=== PATIENT | female | born 1960 | race Caucasian/White ===

== ENCOUNTER 2016-12-13 18:12 | Emergency (ER) | payer OTHER ==
[~2016-12-13] VITALS: Ht 154.9 cm; Wt 47.7 kg
[2016-12-13 18:21] VITALS: TEMP 36.8; Ht 154.9 cm; Wt 47.7 kg
[2016-12-13] MEDS ORDERED: GLC/500 PO (19:00)
[2016-12-13] MEDS ORDERED: NVLG SQ (19:00)
[2016-12-13] MEDS ORDERED: INSDGI SC (19:00)
[2016-12-13] MEDS ORDERED: ATOR10TA82 PO (19:00)
[2016-12-13] MEDS ORDERED: PANT40TA PO (19:00)
[2016-12-13] MEDS ORDERED: GLC500 PO (19:00)
[2016-12-13] MEDS ORDERED: INSU0.01 SQ (19:02)
[2016-12-13 19:06] LABS: URINE APPEARANCE CLEAR (CLEAR); URINE BILIRUBIN NEG (NEG); URINE COLOR YELLOW; URINE NITRITE NEG (NEG); URINE SPECIFIC GRAVITY 1.012 (1.000-1.030); UROBILINOGEN NEG (NEG)
[2016-12-13] MEDS ORDERED: BREX1TAB2 PO (19:06)
[2016-12-13] MEDS ORDERED: VORT1TAB3 PO (19:06)
[2016-12-13] MEDS ORDERED: VENL75CA73 PO (19:06)
[2016-12-13] MEDS ORDERED: MIRT30TA PO (19:06)
[2016-12-13] MEDS ORDERED: BREX1TAB3 PO (19:06)
[2016-12-13] MEDS ORDERED: DIPH25CA65 PO (19:06)
[2016-12-13] MEDS ORDERED: LORA-741 PO (19:07)
[2016-12-13 19:10] LABS: MANUAL MICROSCOPIC REQUIRED? NO; REVIEW REQ? NO
[2016-12-13 19:20] LABS: COMPLETE YES; HEMATOCRIT 41.1 % (37-47); IG% 0.2 %; LYMPH % 20.1 %; LYMPH ABS # 1.68 K/uL (1.2-3.4); MEAN CELL VOLUME 91.1 fL (80-100); MEAN CORPUSCULAR HEMOGLOBIN 32.8 pg (25-34); MEAN PLATELET VOLUME 10.3 fL (7.4-10.4); MONO % 7.2 %; NEUT % 72.5 %; PLATELET COUNT 238 K/uL (130-400); RED BLOOD COUNT 4.51 M/uL (4.2-5.4); WHITE BLOOD COUNT 8.36 K/uL (4.8-10.8)
[2016-12-13 19:21] LABS: BENZODIAZEPINE, URINE NEG (NEG); COCAINE,URINE NEG (NEG); PHENCYCLIDINE, URINE NEG (NEG)
[2016-12-13 19:39] LABS: ALT/SGPT 31 U/L (12-78); AST/SGOT 21 U/L (15-37); BLOOD UREA NITROGEN 9 mg/dl (7-18); BUN/CREATININE RATIO 12.2 (10-20); CALCIUM 9.2 mg/dl (8.5-10.1); CARBON DIOXIDE 25 mmol/L (21-32); CHLORIDE 101 mmol/L (98-107); CREATININE 0.71 mg/dl (0.60-1.20); GLUCOSE 258 mg/dl (70-99); POTASSIUM 4.5 mmol/L (3.5-5.1); SODIUM 135 mmol/L (136-145)
[2016-12-13] MEDS ORDERED: INSULIN GLARGINE SOLOSTAR 100 UNITS/ML 3 ML PEN SC STA (19:44)
[2016-12-13] MEDS ORDERED: PHARMACY GLYCEMIC MGMT CONSULT STA (19:44)
[2016-12-13] MEDS ORDERED: GLUCOSE 40% GEL 15 GM TUBE PO PRN (19:45)
[2016-12-13] MEDS ORDERED: GLUCOSE 10 TABS/TUBE PO PRN (19:45)
[2016-12-13] MEDS ORDERED: GLUCAGON FOR INJ 1 MG VIAL SQ PRN (19:45)
[2016-12-13] MEDS ORDERED: DEXTROSE 50% 50 ML SYR IV PRN (19:45)
[2016-12-13 19:50] LABS: ALKALINE PHOSPHATASE 77 U/L (45-117)
[2016-12-13] MEDS ORDERED: INSULIN ASPART 100 UNITS/ML 3 ML PEN SC SCH ×2 (20:45)
[2016-12-13] MEDS ORDERED: INSULIN HUMAN REGULAR SC SCH (21:00)
[2016-12-13] MEDS ORDERED: PHARMACY GLYCEMIC MGMT CONSULT PRN (21:00)
--- NOTE | 2016-12-13 22:11 | EMERGENCY ROOM VISIT NOTE ---
History Report prepared by Claudy: Jr Oliveira Under the Supervision of: Dr. Zach Rider M.D. First contact with patient: 18:28 Chief Complaint: PSYCHIATRIC PROBLEMS Stated Complaint: DEPRESSION/ANXIETY History of Present Illness The patient is a 56 year old female who presents to the Emergency Room with complaints of worsening anxiety and depression beginning a few weeks ago. She states that she has had worsening feeling of hopelessness. She denies any suicidal or homicidal ideation. The patient describes her anxiety and depression as "severe". She notes that she has had problems with depression and anxiety for many years. She has been hospitalized multiple times for her depression. The patient states that she lost her youngest son to suicide four years ago. She states that her son also murdered the mother of his children, and now her and her are watching those children. The patient sees a therapist once a week, but is beginning to see them twice a week. Source of History: patient Onset: A few weeks ago Symptom Intensity: severe Quality: other (depression and anxiety) Timing: worsening Review of Systems See HPI for pertinent positives & negatives. A total of 10 systems reviewed and were otherwise negative. Past Medical & Surgical Medical Problems: (1) Anxiety (2) Depression Family History No pertinent family history stated. Social History Smoking Status: Current Every Day Smoker Housing Status: lives with family Current/Historical Medications Scheduled Atorvastatin (Lipitor), 10 MG PO QAM Brexpiprazole (Rexulti), 0.5 MG PO DIRECTED Brexpiprazole (Rexulti), 1 MG PO DIRECTED Diphenhydramine Hcl (Benadryl Allergy), 25 MG PO HS Insulin Aspart (Novolog), 1 DOSE SQ SLIDING SCALE Insulin Glargine (Lantus), 8 UNITS SC QAM Insulin Isophane (Human) (Novolin N Relion), 20 UNITS SQ HS Lorazepam (Ativan), 0.5 MG PO BID Metformin HCl (Metformin HCl), 500 MG PO QAM Metformin Hcl (Glucophage), 1,000 MG PO QPM Mirtazapine (Remeron), 30 MG PO HS Pantoprazole (Protonix), 40 MG PO QAM Venlafaxine Hcl (Venlafaxine Extended Rel), 225 MG PO QAM Vortioxetine HBr (Trintellix), 20 MG PO QAM Allergies Coded Allergies: Prednisone (Unverified Allergy, Unknown, HYPER, 12/13/16) Physical Exam Vital Signs Date Time Temp Pulse Resp B/P Pulse Ox O2 Delivery O2 Flow Rate FiO2 12/13/16 23:52 78 18 121/72 96 12/13/16 21:08 84 20 117/74 93 Room Air 12/13/16 19:30 97 20 132/81 93 Room Air 12/13/16 18:21 36.8 100 20 140/83 93 Room Air Physical Exam PSYCH: Denies suicidal or homicidal ideation. GENERAL: Patient is a healthy-appearing well-nourished HEAD: Normocephalic atraumatic EYES: Ocular movements intact pupils equal and react to light OROPHARYNX mucous membranes are moist no exudates present no erythema or edema present NECK: Supple no nuchal rigidity CHEST: Good equal expansion LUNGS: Clear and equal to auscultation CARDIAC: Normal S1 and S2 ABDOMEN: Soft nontender no guarding BACK: No CVA tenderness EXTREMITIES: No pain upon palpation normal muscle strength in all groups no clubbing cyanosis or edema NEURO: Patient is following commands is answering questions appropriately. Alert and oriented x3 Cranial Nerves 2-12 grossly intact Medical Decision & Procedures Laboratory Results 12/13/16 19:08 Red Blood Count 4.51, Mean Corpuscular Volume 91.1, Mean Corpuscular Hemoglobin 32.8, Mean Corpuscular Hemoglobin Concent 36.0, Mean Platelet Volume 10.3, Neutrophils (%) (Auto) 72.5, Lymphocytes (%) (Auto) 20.1, Monocytes (%) (Auto) 7.2, Eosinophils (%) (Auto) 0.0, Basophils (%) (Auto) 0.0, Neutrophils # (Auto) 6.06, Lymphocytes # (Auto) 1.68, Monocytes # (Auto) 0.60, Eosinophils # (Auto) 0.00, Basophils # (Auto) 0.00 12/13/16 19:08 Test 12/13/16 18:35 12/13/16 19:08 12/13/16 23:45 Urine Color YELLOW Urine Appearance CLEAR (CLEAR) Urine pH 5.0 (4.5-7.5) Urine Specific [place] 1.012 (1.000-1.030) Urine Protein NEG (NEG) Urine Glucose (UA) 1+ (NEG) Urine Ketones 1+ (NEG) Urine Occult Blood 1+ (NEG) Urine Nitrite NEG (NEG) Urine Bilirubin NEG (NEG) Urine Urobilinogen NEG (NEG) Urine Leukocyte Esterase NEG (NEG) Urine WBC (Auto) 1-5 /hpf (0-5) Urine RBC (Auto) 0-4 /hpf (0-4) Urine Hyaline Casts (Auto) 0 /lpf (0-5) Urine Epithelial Cells (Auto) 5-10 /lpf (0-5) Urine Bacteria (Auto) NEG (NEG) Urine Opiates Screen NEG (NEG) Urine Methadone, Qualitative NEG (NEG) Urine Barbiturates NEG (NEG) Urine Phencyclidine (PCP) Level NEG (NEG) Ur Amphetamine/Methamphetamine NEG (NEG) MDMA (Ecstasy) Screen NEG (NEG) Urine Benzodiazepines Screen NEG (NEG) Urine Cocaine Metabolite NEG (NEG) Urine Marijuana (THC) NEG (NEG) White Blood Count 8.36 K/uL (4.8-10.8) Red Blood Count 4.51 M/uL (4.2-5.4) Hemoglobin 14.8 g/dL (12.0-16.0) Hematocrit 41.1 % (37-47) Mean Corpuscular Volume 91.1 fL (80-100) Mean Corpuscular Hemoglobin 32.8 pg (25-34) Mean Corpuscular Hemoglobin Concent 36.0 g/dl (32-36) Platelet Count 238 K/uL (130-400) Mean Platelet Volume 10.3 fL (7.4-10.4) Neutrophils (%) (Auto) 72.5 % Lymphocytes (%) (Auto) 20.1 % Monocytes (%) (Auto) 7.2 % Eosinophils (%) (Auto) 0.0 % Basophils (%) (Auto) 0.0 % Neutrophils # (Auto) 6.06 K/uL (1.4-6.5) Lymphocytes # (Auto) 1.68 K/uL (1.2-3.4) Monocytes # (Auto) 0.60 K/uL (0.11-0.59) Eosinophils # (Auto) 0.00 K/uL (0-0.5) Basophils # (Auto) 0.00 K/uL (0-0.2) RDW Standard Deviation 44.1 fL (36.4-46.3) RDW Coefficient of Variation 13.2 % (11.5-14.5) Immature Granulocyte % (Auto) 0.2 % Immature Granulocyte # (Auto) 0.02 K/uL (0.00-0.02) Anion Gap 9.0 mmol/L (3-11) Est Creatinine Clear Calc Drug Dose 67.4 ml/min Estimated GFR () 111.1 Estimated GFR (Non- 95.9 BUN/Creatinine Ratio 12.2 (10-20) Calcium Level 9.2 mg/dl (8.5-10.1) Total Bilirubin 0.4 mg/dl (0.2-1) Direct Bilirubin < 0.1 mg/dl (0-0.2) Aspartate Amino Transf (AST/SGOT) 21 U/L (15-37) Alanine Aminotransferase (ALT/SGPT) 31 U/L (12-78) Alkaline Phosphatase 77 U/L (45-117) Total Protein 7.7 gm/dl (6.4-8.2) Albumin 4.2 gm/dl (3.4-5.0) Thyroid Stimulating Hormone (TSH) 1.840 uIu/ml (0.300-4.500) Ethyl Alcohol mg/dL < 3.0 mg/dl (0-3) Bedside Glucose 446 mg/dl (70-90) Labs reviewed by ED physician. Medications Administered Medications (Trade) Dose Ordered Sig/Andrew Route Start Time Stop Time Status Last Admin Dose Admin Insulin Aspart (novoLOG ASPART) SLIDING SCALE ACHS SC 12/13/16 20:45 12/14/16 00:20 DC 12/13/16 20:58 10 UNITS Insulin Human NPH (novoLIN-N NPH) 10 units ONE ONCE SC 12/13/16 22:15 12/13/16 22:16 DC 12/13/16 23:09 10 UNITS Nicotine (Nicoderm Cq 21MG Patch) 1 patch NOW STAT TD 12/13/16 22:55 12/13/16 22:56 DC 12/13/16 23:09 1 PATCH ED Course 1848: Past medical records reviewed. The patient was evaluated in room A6. A complete history and physical examination was performed. 1944: Ordered consult [facility]. 2099: The patient is medically clear. She will be evaluated by -[facility]. Ordered [facility]. 2254: Ordered Nicoderm Cq 21 mg Patch TD. 2300: Ordered Nicorette 2 mg gum MT. 2322: I spoke with the commercial sales representative from [address] [place] [address]. They feel that the patient would be safe for discharge with outpatient follow up. 2330: Upon reexamination the patient is resting comfortably. I discussed results and treatment plan with the patient. She verbalizes agreement and understanding. The patient is ready for discharge. Medical Decision Differential diagnosis: Etiologies such as mood disorder, infection, hypoglycemia, electrolyte abnormalities, cardiac sources, intracerebral event, toxicologic, neurologic, as well as others were entertained. This is a 56-year-old female who presents emergency department complaining of anxiety. The patient denies being suicidal or homicidal. The patient has made double times to get admitted however does not feel that she is suicidal or homicidal. Based on these findings I did discuss the case with the case management who agreed to see the patient. The patient was also evaluated by [facility]. and it was felt that the patient was well enough to be discharged home. The patient does have an elevation in her blood sugar. She was given 10 units of insulin while emergency department. I stressed the need for close follow-up with her diabetic doctor. Patient was in agreement with the treatment plan. Impression Primary Impression: Mood disorder Additional Impression: Hyperglycemia Scribe Attestation The scribe's documentation has been prepared under my direction and personally reviewed by me in its entirety. I confirm that the note above accurately reflects all work, treatment, procedures, and medical decision making performed by me. Departure Information Dispostion Home / Self-Care Referrals No Doctor, Assigned (PCP) Forms HOME CARE DOCUMENTATION FORM, IMPORTANT VISIT INFORMATION, WORK / SCHOOL INSTRUCTIONS Patient Instructions Hyperglycemia, Hypertension Control, My [facility] Additional Instructions You were found to have an elevated blood pressure today (>120 sytolic or >90 diastolic). Per medicare guidelines, you need to follow up with this blood pressure screening with your Primary Care Physician (PCP). For a new PCP call [phone]. You have been examined and treated today on an emergency basis only. This is not a substitute for, or an effort to provide, complete comprehensive medical care. It is impossible to recognize and treat all injuries or illnesses in a single emergency department visit. It is therefore important that you follow up closely with Dr Lazaro. Call as soon as possible for an appointment. Thank you for your time and consideration. I look forward to speaking with you again soon. Please don't hesitate to call us if you have any questions. Problem Qualifiers
[2016-12-13] MEDS ORDERED: INSULIN HUMAN NPH SC ONE (22:15)
[2016-12-13] MEDS ORDERED: NICOTINE 21 MG/24 HR TDSY TD STA (22:55)
[2016-12-13] MEDS ORDERED: NICOTINE POLACRILEX 2 MG GUM MT PRN (23:00)
[2016-12-13 23:52] VITALS: BP 121/72; PULSE 78; O2SAT 96
[2016-12-14] MEDS ORDERED: INSULIN ASPART 100 UNITS/ML 3 ML PEN SC SCH
== END 2016-12-13 23:53 | disposition home or self-care (01) ==
LOC: C.EDB 18:15 → C.EDA 23:53
DX: F39 Unspecified mood [affective] disorder (principal); E11.65 Type 2 diabetes mellitus with hyperglycemia; F41.9 Anxiety disorder, unspecified; F17.200 Nicotine dependence, unspecified, uncomplicated; Z79.4 Long term (current) use of insulin; Z79.84 Long term (current) use of oral hypoglycemic drugs

== ENCOUNTER 2016-12-14 17:15 | Emergency (ER) | payer OTHER ==
[~2016-12-14] VITALS: Ht 154.9 cm; Wt 47.7 kg
[~2016-12-14 17:15] MED LIST: ATOR10TA82 PO; BREX1TAB2 PO; BREX1TAB3 PO; DIPH25CA65 PO; GLC/500 PO; GLC500 PO; INSDGI SC; INSU0.01 SQ; LORA-741 PO; MIRT30TA PO; NVLG SQ; PANT40TA PO; VENL75CA73 PO; VORT1TAB3 PO
[2016-12-14 17:20] VITALS: TEMP 36.8; Ht 154.9 cm; Wt 47.7 kg
[2016-12-14 17:54] LABS: URINE APPEARANCE CLEAR (CLEAR); URINE BILIRUBIN NEG (NEG); URINE COLOR YELLOW; URINE NITRITE NEG (NEG); URINE SPECIFIC GRAVITY 1.007 (1.000-1.030); UROBILINOGEN NEG (NEG)
[2016-12-14 17:55] LABS: MANUAL MICROSCOPIC REQUIRED? YES; REVIEW REQ? NO
[2016-12-14 18:06] LABS: URINE BACTERIA NEG (NEG); URINE RBC 0-4 /hpf (0-4)
[2016-12-14 18:35] LABS: BENZODIAZEPINE, URINE NEG (NEG); COCAINE,URINE NEG (NEG); PHENCYCLIDINE, URINE NEG (NEG)
[2016-12-14] MEDS ORDERED: ATIVAN 1MG HOMEPACK PO ONE (20:45)
[2016-12-14 21:10] VITALS: BP 129/84; PULSE 94; O2SAT 98
--- NOTE | 2016-12-14 23:28 | EMERGENCY ROOM VISIT NOTE ---
History Report prepared by Claudy: Indiana Ramos Under the Supervision of: Dr. Tahir Cuevas D.O. First contact with patient: 17:28 Chief Complaint: MENTAL HEALTH EVALUATION Stated Complaint: DEPRESSION,ANXIETY,TEARFULNESS,TIRED History of Present Illness The patient is a 56 year old female who presents to the Emergency Room with complaints of an episode of severe depression starting a week ago. The patient states that she has a history of severe depression and anxiety. She states that she came to the ED yesterday, but didn't meet criteria to be admitted. She reports that she has been institutionalized before, the most recent being last summer at [facility]. She reports that her therapist and psychiatrist suggest she be inpatient till her depression and anxiety are under control. The patient states she last saw her therapist last week as a routine appointment. She states that much of her depression is from stress raising her three grandchildren. She reports that in 2012 her son committed suicide after shooting his . She states that she has had ideas of hurting herself, but denies a plan. She denies hearing voices, using alcohol, and using drugs. She notes that she had a medication change recently. Source of History: patient Onset: week ago Position: other (global) Quality: other (global) Timing: other (episode) Note: The patient complains of ideas of hurting herself. The patient denies a plan to hurt herself and voices. Review of Systems See HPI for pertinent positives & negatives. A total of 10 systems reviewed and were otherwise negative. Past Medical & Surgical Medical Problems: (1) Anxiety (2) Depression (3) Diabetes Family History No pertinent family history Social History Smoking Status: Current Every Day Smoker Alcohol Use: none Drug Use: none Marital Status: Housing Status: lives with family Current/Historical Medications Scheduled Atorvastatin (Lipitor), 10 MG PO QAM Brexpiprazole (Rexulti), 0.5 MG PO DIRECTED Brexpiprazole (Rexulti), 1 MG PO DIRECTED Diphenhydramine Hcl (Benadryl Allergy), 25 MG PO HS Insulin Aspart (Novolog), 1 DOSE SQ SLIDING SCALE Insulin Glargine (Lantus), 8 UNITS SC QAM Insulin Isophane (Human) (Novolin N Relion), 20 UNITS SQ HS Lorazepam (Ativan), 0.5 MG PO BID Metformin HCl (Metformin HCl), 500 MG PO QAM Metformin Hcl (Glucophage), 1,000 MG PO QPM Mirtazapine (Remeron), 30 MG PO HS Pantoprazole (Protonix), 40 MG PO QAM Venlafaxine Hcl (Venlafaxine Extended Rel), 225 MG PO QAM Vortioxetine HBr (Trintellix), 20 MG PO QAM Allergies Coded Allergies: Prednisone (Unverified Allergy, Unknown, HYPER, 12/14/16) Physical Exam Vital Signs Date Time Temp Pulse Resp B/P Pulse Ox O2 Delivery O2 Flow Rate FiO2 12/14/16 21:10 94 20 129/84 98 Room Air 12/14/16 17:20 36.8 108 18 154/84 94 Room Air Physical Exam GENERAL: Patient is awake, alert, and in no acute distress. Patient is resting comfortably and anxious in appearance. She doesn't appear to be in pain. EYES: The conjunctivae are clear. The pupils are round and reactive. EARS, NOSE, MOUTH AND THROAT: The nose is without any evidence of any deformity. Mucous membranes are moist tongue is midline NECK: The neck is nontender and supple. RESPIRATORY: Normal respiratory effort is noted there is no evidence of wheezing rhonchi or rales CARDIOVASCULAR: Regular rate and rhythm noted there no murmurs rubs or gallops normal S1 normal S2 GASTROINTESTINAL: The abdomen is soft. Bowel sounds are present in all quadrants. Abdomen is nontender MUSCULOSKELETAL/EXTREMITIES: There is no evidence of gross deformity full range of motion is noted in the hips and shoulders SKIN: There is no obvious evidence of any rash. There are no petechiae, pallor or cyanosis noted. NEUROLOGIC: Patient is awake alert and oriented x3 strength is symmetric patellar reflexes are 2+ bilaterally PSYCH: Affect is flat. Patient makes poor eye contact at times. Patient admits to suicidal ideation but no plan. Medical Decision & Procedures Laboratory Results Test 12/14/16 00:00 12/14/16 19:32 Urine Color YELLOW Urine Appearance CLEAR (CLEAR) Urine pH 6.0 (4.5-7.5) Urine Specific [place] 1.007 (1.000-1.030) Urine Protein NEG (NEG) Urine Glucose (UA) NEG (NEG) Urine Ketones TRACE (NEG) Urine Occult Blood TRACE (NEG) Urine Nitrite NEG (NEG) Urine Bilirubin NEG (NEG) Urine Urobilinogen NEG (NEG) Urine Leukocyte Esterase NEG (NEG) Urine WBC (Auto) /hpf (0-5) Urine RBC (Auto) /hpf (0-4) Urine Hyaline Casts (Auto) /lpf (0-5) Urine Epithelial Cells (Auto) /lpf (0-5) Urine Bacteria (Auto) (NEG) Urine RBC 0-4 /hpf (0-4) Urine WBC 1-5 /hpf (0-5) Urine Epithelial Cells 10-20 /lpf (0-5) Urine Bacteria NEG (NEG) Urine Opiates Screen NEG (NEG) Urine Methadone, Qualitative NEG (NEG) Urine Barbiturates NEG (NEG) Urine Phencyclidine (PCP) Level NEG (NEG) Ur Amphetamine/Methamphetamine NEG (NEG) MDMA (Ecstasy) Screen NEG (NEG) Urine Benzodiazepines Screen NEG (NEG) Urine Cocaine Metabolite NEG (NEG) Urine Marijuana (THC) NEG (NEG) Bedside Glucose 235 mg/dl (70-90) Laboratory results per my review. Medications Administered Medications (Trade) Dose Ordered Sig/Andrew Route Start Time Stop Time Status Last Admin Dose Admin Lorazepam (Ativan 1MG Home Pack) 1 homepack UD ONCE PO 12/14/16 20:45 12/14/16 20:46 DC 12/14/16 21:12 1 HOMEPACK ED Course 1727: The patient was evaluated in room A6. A complete history and physical examination were performed. 2044: Ordered Lorazepam 1 homepack PO. 2111: Upon reevaluation, the patient is resting comfortably. I discussed the results and treatment plan with her. The patient verbalized agreement of the treatment plan. She was discharged home. Medical Decision Differential diagnosis: Etiologies such as mood disorder, infection, hypoglycemia, electrolyte abnormalities, cardiac sources, intracerebral event, toxicologic, neurologic, as well as others were entertained. Nursing notes reviewed. Patient's previous electronic medical records reviewed. The patient is a 56-year-old female who presented to the emergency department for evaluation of depression and anxiety. The patient has many stressors. She was cleared medically yesterday and at this time I do not see any new indication to repeat laboratory studies. She was evaluated by the mental health top case assembler in the emergency Department as well as the delegate from [address] [place] [address]. The delegate from [address] [place] [address] discussed her case with the on-call psychiatrist and at this time she does not meet criteria for inpatient management. The patient was encouraged to continue all medications as prescribed and follow-up with her primary care physician as well as her primary therapist as soon as possible. She was also encouraged to call crisis or return to the emergency department immediately if symptoms change worsen or the need arises. Impression Primary Impression: Anxiety Additional Impression: Depression Scribe Attestation The scribe's documentation has been prepared under my direction and personally reviewed by me in its entirety. I confirm that the note above accurately reflects all work, treatment, procedures, and medical decision making performed by me. Departure Information Dispostion Home / Self-Care Referrals Hina Lazaro M.D. (PCP) Forms HOME CARE DOCUMENTATION FORM, IMPORTANT VISIT INFORMATION Patient Instructions My [facility] Additional Instructions Continue all medications as prescribed. Rest and avoid any strenuous activity. Follow-up with your therapist as scheduled. Call crisis or return to the emergency Department immediately if symptoms change worsen or the need arises. Problem Qualifiers Additional Impression: Depression Depression Type: unspecified Qualified Codes: F32.9 - Major depressive disorder, single episode, unspecified
== END 2016-12-14 21:12 | disposition home or self-care (01) ==
LOC: C.EDB 17:16 → C.EDA 21:12
DX: F41.9 Anxiety disorder, unspecified (principal); F32.9 Major depressive disorder, single episode, unspecified; E11.9 Type 2 diabetes mellitus without complications; F17.200 Nicotine dependence, unspecified, uncomplicated; Z79.4 Long term (current) use of insulin; Z79.84 Long term (current) use of oral hypoglycemic drugs

== ENCOUNTER 2016-12-15 17:43 | Inpatient (IN) | payer OTHER ==
[~2016-12-15] VITALS: Ht 154.9 cm; Wt 46.9 kg
--- NOTE | 2016-12-15 18:09 | EMERGENCY ROOM VISIT NOTE ---
History Report prepared by Claudy: Davy Silvestre Under the Supervision of: Dr. Tahir Cuevas D.O. First contact with patient: 17:47 Chief Complaint: MENTAL HEALTH EVALUATION Stated Complaint: SEVERE DEPRESSION AND ANXIETY History of Present Illness The patient is a 56 year old female who presents to the Emergency Room for the third time in the past three days due to severe depression and anxiety that she has been dealing with for the past week. The patient is currently under a significant amount of stress due to raising her three grandchildren after her son killed himself and his just over four years ago. She has a history of anxiety and depression and sees a therapist routinely. She was treated as an inpatient for psychiatric concerns at [place] last summer, almost one year ago. On the previous two visits it was stated by [facility] that the patient did no meet criteria for inpatient treatment. Today the patient notes that her depression continues to worsen. She still denies any specific suicidal plans, but notes that sometimes she "thinks that her family might be better off without her." The hospital Psychologist Clinical called the patient earlier today, and she stated that she was not doing well. She was then advised to come back to the Emergency Department. 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 A total of 10 systems reviewed and were otherwise negative. Past Medical & Surgical Medical Problems: (1) Anxiety (2) Depression (3) Diabetes Family History No pertinent family history Social History Smoking Status: Current Every Day Smoker Alcohol Use: none Drug Use: none Marital Status: Housing Status: lives with family Current/Historical Medications Scheduled Atorvastatin (Lipitor), 10 MG PO QAM Brexpiprazole (Rexulti), 0.5 MG PO DIRECTED Brexpiprazole (Rexulti), 1 MG PO DIRECTED Insulin Aspart (Novolog), 1 DOSE SQ SLIDING SCALE Insulin Glargine (Lantus), 8 UNITS SC QAM Insulin Isophane (Human) (Novolin N Relion), 20 UNITS SQ HS Lorazepam (Ativan), 0.5 MG PO BID Metformin HCl (Metformin HCl), 500 MG PO QAM Metformin Hcl (Glucophage), 1,000 MG PO QPM Mirtazapine (Remeron), 30 MG PO HS Pantoprazole (Protonix), 40 MG PO QAM Venlafaxine Hcl (Venlafaxine Extended Rel), 225 MG PO QAM Vortioxetine HBr (Trintellix), 20 MG PO QAM Scheduled PRN Diphenhydramine Hcl (Benadryl Allergy), 25 MG PO HS PRN for Insomnia Allergies Coded Allergies: Prednisone (Unverified Adverse Reaction, Unknown, HYPER, 12/15/16) Physical Exam Vital Signs Date Time Temp Pulse Resp B/P Pulse Ox O2 Delivery O2 Flow Rate FiO2 12/15/16 17:47 36.8 92 22 162/103 95 Room Air Physical Exam GENERAL: Patient is awake, alert, and very anxious appearing. EYES: The conjunctivae are clear. The pupils are round and reactive. EARS, NOSE, MOUTH AND THROAT: The nose is without any evidence of any deformity. Mucous membranes are moist tongue is midline NECK: The neck is nontender and supple. RESPIRATORY: Normal respiratory effort is noted there is no evidence of wheezing rhonchi or rales CARDIOVASCULAR: Regular rate and rhythm noted there no murmurs rubs or gallops normal S1 normal S2 GASTROINTESTINAL: The abdomen is soft. Bowel sounds are present in all quadrants. Abdomen is nontender MUSCULOSKELETAL/EXTREMITIES: There is no evidence of gross deformity full range of motion is noted in the hips and shoulders SKIN: There is no obvious evidence of any rash. There are no petechiae, pallor or cyanosis noted. NEUROLOGIC: Patient is awake alert and oriented x3 strength is symmetric patellar reflexes are 2+ bilaterally PSYCH: The patient's affect was very flat. She was very anxious appearing. Makes poor eye contact. Vague suicidal ideation without any specific plan. Medical Decision & Procedures Laboratory Results Test 12/15/16 18:05 Urine Color DK YELLOW Urine Appearance CLEAR (CLEAR) Urine pH 5.5 (4.5-7.5) Urine Specific [place] 1.027 (1.000-1.030) Urine Protein NEG (NEG) Urine Glucose (UA) NEG (NEG) Urine Ketones 2+ (NEG) Urine Occult Blood TRACE (NEG) Urine Nitrite NEG (NEG) Urine Bilirubin NEG (NEG) Urine Urobilinogen NEG (NEG) Urine Leukocyte Esterase NEG (NEG) Urine WBC (Auto) 1-5 /hpf (0-5) Urine RBC (Auto) 5-10 /hpf (0-4) Urine Hyaline Casts (Auto) 1-5 /lpf (0-5) Urine Epithelial Cells (Auto) >30 /lpf (0-5) Urine Bacteria (Auto) 1+ (NEG) Urine Opiates Screen NEG (NEG) Urine Methadone, Qualitative NEG (NEG) Urine Barbiturates NEG (NEG) Urine Phencyclidine (PCP) Level NEG (NEG) Ur Amphetamine/Methamphetamine NEG (NEG) MDMA (Ecstasy) Screen NEG (NEG) Urine Benzodiazepines Screen NEG (NEG) Urine Cocaine Metabolite NEG (NEG) Urine Marijuana (THC) NEG (NEG) Laboratory results per my review. ED Course 1755: The patient was evaluated in room A6. A complete history and physical examination were performed. 1900: I discussed the case with the [address] [place] [address] Delegate at this time, the patient will be accepted to [address] [place] [address] for psychiatric inpatient treatment. Medical Decision Medication Reconciliation: I attest that I have personally reviewed the patient' s current medications list. Blood pressure screening: Patient was found to have an elevated blood pressure and was referred to their primary doctor for recheck and further treatment. Differential diagnosis: Etiologies such as mood disorder, infection, hypoglycemia, electrolyte abnormalities, cardiac sources, intracerebral event, toxicologic, neurologic, as well as others were entertained. The patient is a 56-year-old female who presented to emergency department for evaluation of depression and suicidal ideation. The patient has been having ongoing symptoms for quite some time but these appear to be worsened especially over the last week. This is the third visit to our emergency department for the symptoms. On previous visits the patient was not admitted for inpatient psychiatric care because she did not meet specific criteria but today her symptoms appear much worse. She doesn't a history of diabetes. She was medically cleared recently so I do not feel repeat laboratory studies would be warranted. I discussed the patient's case with the emergency department mental trimming caser. She was evaluated by [address] [place] [address] and felt to be a good candidate for inpatient treatment. Consults Time Called: 1800 Consulting Physician: [address] [place] [address] Delegate Returned Call: 1900 I discussed the case with the [address] [place] [address] Delegate at this time, the patient will be accepted to [address] [place] [address] for psychiatric inpatient treatment. Impression Primary Impression: Depression Additional Impressions: Anxiety Suicidal ideation Scribe Attestation The scribe's documentation has been prepared under my direction and personally reviewed by me in its entirety. I confirm that the note above accurately reflects all work, treatment, procedures, and medical decision making performed by me. Departure Information Dispostion Mental [facility] Acute Care (-[facility]) Referrals Hina Lazaro M.D. (PCP) Patient Instructions My [facility] Problem Qualifiers Primary Impression: Depression Depression Type: unspecified Qualified Codes: F32.9 - Major depressive disorder, single episode, unspecified
[2016-12-15 18:18] LABS: URINE APPEARANCE CLEAR (CLEAR); URINE BILIRUBIN NEG (NEG); URINE COLOR DK YELLOW; URINE EPITHELIAL CELL AUTO >30 /lpf (0-5); URINE NITRITE NEG (NEG); URINE PH 5.5 (4.5-7.5); URINE SPECIFIC GRAVITY 1.027 (1.000-1.030); UROBILINOGEN NEG (NEG)
[2016-12-15 18:22] LABS: MANUAL MICROSCOPIC REQUIRED? NO; REVIEW REQ? YES
[2016-12-15 18:42] LABS: BENZODIAZEPINE, URINE NEG (NEG); COCAINE,URINE NEG (NEG); PHENCYCLIDINE, URINE NEG (NEG)
[2016-12-15] MEDS ORDERED: NON-FORMULARY MEDICATION SCH ×3 (19:15)
[2016-12-15] MEDS ORDERED: BISMUTH SUBSALICYLATE PER ML OMNICELL CHARGE PO PRN (19:30)
[2016-12-15] MEDS ORDERED: ACETAMINOPHEN 325 MG TAB PO PRN (19:30)
[2016-12-15] MEDS ORDERED: NICOTINE POLACRILEX 2 MG GUM MT PRN (19:30)
[2016-12-15] MEDS ORDERED: ALUMINUM/MAGNESIUM SUSP 30 ML UDC PO PRN (19:30)
[2016-12-15] MEDS ORDERED: SODIUM CHLORIDE 0.65% NA SOLN 45 ML (OCEAN) PRN (19:30)
[2016-12-15] MEDS ORDERED: MAGNESIUM HYDROXIDE SUSP 30 ML UDC PO PRN (19:30)
[2016-12-15] MEDS ORDERED: hydrOXYzine HCL 25 MG TAB PO PRN ×2 (19:30)
[2016-12-15 19:48] VITALS: BP 132/78; PULSE 69; TEMP 36.8; BMI 19.5
[2016-12-15 20:12] VITALS: O2SAT 95
[2016-12-15] MEDS ORDERED: NURSING VERBAL MED ORDER ONE (20:30)
[2016-12-15] MEDS ORDERED: PHARMACY GLYCEMIC MGMT CONSULT PRN (20:45)
[2016-12-15] MEDS ORDERED: METFORMIN HCL 500 MG TAB PO SCH (21:00)
[2016-12-15] MEDS ORDERED: INSULIN ASPART 100 UNITS/ML 3 ML PEN SQ SCH (21:00)
[2016-12-15] MEDS ORDERED: INSULIN HUMAN NPH SQ SCH (21:30)
--- NOTE | 2016-12-15 21:41 | Pharmacy Progress Note ---
Glycemic: Assessment & Plan Date of Service December 15, 2016. Assessment & Plan Item Value Date Time Bedside Glucose 277 mg/dl H 12/15/16 1819 Reported Home Diabetes Regimen: * Lantus 8 units sub-q qam (pt has confirmed she has not missed any of these doses 12/13, 12/14, 12/15) * NPH 20 units sub-q qPM (pt may have received only 10 units when in ED Fri evening, 12/13) * Novolog per SSI. Average dose with B / L / D approximately 8 units / 4 units / 7 units SLIDING SCALE: 20-59= QAM(6 units) L(2 units) QPM(5 units) HS(0 units) 60-99= QAM(7) L(3) QPM(6) HS(0) 100-139= QAM(8) L(4) QPM(7) HS(0) 140-179= QAM(8) L(4) QPM(7) HS(0) 180-219= QAM(9) L(5) QPM(8) HS(1) 220-259= QAM(10) L(6) QPM(9) HS(2) 260-299= QAM(11) L(7) QPM(10) HS(3) 300-339= QAM(12) L(8) QPM(11) HS(4) 340-379= QAM(13) L(9) QPM(12) HS(5) 380-419= QAM(14) L(10) QPM(13) HS(6) 420-459= QAM(15) L(11) QPM(14) HS(7) 460-499= QAM(16) L(12) QPM(15) HS(8) 500-539= QAM(17) L(13) QPM(16) HS(9) * metformin 500mg po qam, 1000mg po qpm PLAN: Patient is a type-1 diabetic. Will basically continue her home insulin regimen (will reduce NPH 25% tonite) and reassess possible use of "home" metformin 12/16. 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 Incorporating a recheck of BSG @ 0200 and will monitor closely moving forward. In-patient Regimen: * Basal insulin: Lantus 8 units every QAM, NPH 15 units sub-q tonite * Correctional Insulin: Novolog Correction per scale ACHS & 0200 Goal Range: Low 100 mg/dL - High 140 mg/dL Correction Factor: 40 mg/dL/unit ACHS, will use correction factor = 50mg/dL/unit with 0200 check (NPH will be "peaking") * Prandial insulin: Per carb ratio of 1 unit per 15 grams CHO consumed, no carb ratio with 0200 check (NPH will be "peaking") Pharmacy will continue to monitor patient daily and write orders per [facility] inpatient glycemic control protocol. Thanks. * Please note that the plan above was derived based on current level of insulin resistance and hospital stress. These recommendations are appropriate for inpatient admission only. Plan of care upon discharge will need to be reassessed to avoid potential outpatient hypo/hyperglycemia.
[2016-12-15] MEDS: MIRTAZAPINE TAB 15 MG TAB PO SCH (21:55)
[2016-12-15] MEDS: LORAZEPAM 0.5 MG TAB PO SCH (21:56)
[2016-12-16] MEDS ORDERED: INSULIN ASPART 100 UNITS/ML 3 ML PEN SQ SCH ×2 (02:00)
[2016-12-16 07:03] VITALS: BP_SYST 115; BP_SYST 122; BP_SYST 145; BP_DIAS 77; BP_DIAS 78; BP_DIAS 89; PULSE 64; PULSE 79; TEMP 36.3
[2016-12-16] MEDS ORDERED: BREXPIPRAZOLE 1 MG PO SCH (09:00)
[2016-12-16] MEDS ORDERED: METFORMIN HCL 500 MG TAB PO SCH (09:00)
[2016-12-16] MEDS ORDERED: VENLAFAXINE HCL XR 75 MG CAPXR PO SCH (09:00)
[2016-12-16] MEDS: NICOTINE 21 MG/24 HR TDSY TD SCH (09:25)
[2016-12-16] MEDS: INSULIN GLARGINE SOLOSTAR 100 UNITS/ML 3 ML PEN SC SCH (09:26)
[2016-12-16] MEDS: ATORVASTATIN 10 MG TAB PO SCH (09:27)
[2016-12-16] MEDS: VORTIOXETINE HBR 20 MG PO SCH (09:27)
[2016-12-16] MEDS: LORAZEPAM 0.5 MG TAB PO SCH ×2 (09:27→21:17)
[2016-12-16] MEDS: PANTOprazole SOD 40 MG TAB PO SCH (09:27)
[2016-12-16] MEDS: INSULIN ASPART 100 UNITS/ML 3 ML PEN SQ SCH ×4 (09:39→21:14)
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
--- NOTE | 2016-12-16 13:34 | Pharmacy Progress Note ---
Glycemic Control: Progress Nt Date of Service December 16, 2016. Scope Glycemic Pharmacist consulted by Dr Meléndez on 12/15/16 for glycemic control and to write orders per [facility] inpatient glycemic control protocol. Objective Accuchecks BSG (last 24hrs): Test 12/15/16 18:19 12/16/16 01:55 12/16/16 08:17 12/16/16 08:36 Bedside Glucose 277 mg/dl (70-90) 298 mg/dl (70-90) 60 mg/dl (70-90) 114 mg/dl (70-90) Test 12/16/16 11:45 Bedside Glucose 254 mg/dl (70-90) Recent Pertinent Medications Outpatient Anti-diabetic Regimen: * Lantus 8 units sub-q qam (pt has confirmed she has not missed any of these doses 12/13, 12/14, 12/15) * NPH 20 units sub-q qPM (pt may have received only 10 units when in ED Fri evening, 12/13) * Novolog per SSI. Average dose with B / L / D approximately 8 units / 4 units / 7 units SLIDING SCALE: 20-59= QAM(6 units) L(2 units) QPM(5 units) HS(0 units) 60-99= QAM(7) L(3) QPM(6) HS(0) 100-139= QAM(8) L(4) QPM(7) HS(0) 140-179= QAM(8) L(4) QPM(7) HS(0) 180-219= QAM(9) L(5) QPM(8) HS(1) 220-259= QAM(10) L(6) QPM(9) HS(2) 260-299= QAM(11) L(7) QPM(10) HS(3) 300-339= QAM(12) L(8) QPM(11) HS(4) 340-379= QAM(13) L(9) QPM(12) HS(5) 380-419= QAM(14) L(10) QPM(13) HS(6) 420-459= QAM(15) L(11) QPM(14) HS(7) 460-499= QAM(16) L(12) QPM(15) HS(8) 500-539= QAM(17) L(13) QPM(16) HS(9) * metformin 500mg po qam, 1000mg po qpm Assessment & Plan ASSESSMENT: * 56yo type one diabetic with unknown degree of outpatient control. Will order A1c per protocol * Pt admitted last evening - outpatient regimen continued on admission with the exception of: * Metformin held * Decreased dose of NPH given last evening therefore additional BSG check + NovoLog given at 0200 for hyperglycemia * Pt with HYPOglycemia this morning, AM fasting BSG = 60mg/dl. Low was treated with juice per protocol, resolution of hypo with BSG = 114mg/dl and then patient was given breakfast * Hypo most likely secondary to large doses of NovoLog given at bedtime and 0200 for hyperglycemia * Will adjust regimen accordingly to prevent further hypo PLAN FOR INPATIENT GLYCEMIC CONTROL: * Holding outpatient oral diabetes medications * May consider resuming as patient does not have any medical contraindications to metformin at this time. Will re-consider 12/17 since pt with hypo 12/16. * Basal insulin * Lantus 8 units SQ daily in AM {this is outpatient dosing} * NPH 17 units SQ HS {this is reduced outpatient dosing to help prevent AM low } * Bolus insulin * NovoLog per scale ACHS or Q6hrs while NPO * Goal Range: Low 100 mg/dL - High 140 mg/dL * Correction Factor: 40 mg/dL/unit * Nutritional / Prandial insulin per carb ratio of 1 unit per 13 grams CHO consumed * Please note that the plan above was derived based on current level of insulin resistance and hospital stress. These recommendations are appropriate for inpatient admission only. Plan of care upon discharge will need to be reassessed to avoid potential outpatient hypo/hyperglycemia. Thank you.
[2016-12-16] MEDS: MIRTAZAPINE TAB 15 MG TAB PO SCH (21:18)
[2016-12-16] MEDS: QUETIAPINE FUMARATE 25 MG TAB PO SCH (21:18)
[2016-12-16] MEDS ORDERED: INSULIN HUMAN NPH SQ SCH ×2 (22:00)
[2016-12-17 07:06] VITALS: BP_SYST 121; BP_SYST 99; BP_DIAS 65; BP_DIAS 84; PULSE 80; TEMP 36.6
[2016-12-17] MEDS: VENLAFAXINE HCL XR 75 MG CAPXR PO SCH (09:27)
[2016-12-17] MEDS: LORAZEPAM 0.5 MG TAB PO SCH ×2 (09:27→21:51)
[2016-12-17] MEDS: VORTIOXETINE HBR 20 MG PO SCH (09:28)
[2016-12-17] MEDS: PANTOprazole SOD 40 MG TAB PO SCH (09:28)
[2016-12-17] MEDS: NICOTINE 21 MG/24 HR TDSY TD SCH (09:28)
[2016-12-17] MEDS: ATORVASTATIN 10 MG TAB PO SCH (09:28)
[2016-12-17] MEDS: INSULIN GLARGINE SOLOSTAR 100 UNITS/ML 3 ML PEN SC SCH (09:30)
[2016-12-17] MEDS: INSULIN ASPART 100 UNITS/ML 3 ML PEN SQ SCH ×3 (09:34→17:15)
[2016-12-17] MEDS: METFORMIN HCL 500 MG TAB PO SCH ×2 (09:35→18:06)
--- NOTE | 2016-12-17 13:10 | Psychiatric Progress Notes ---
Progress Note Date of Service December 17, 2016. Interval History 56 yo female admitted voluntarily on 12/16 with severe depression, anxiety and suicidality. She has had chronic struggles with depression and anxiety, worsened after her son murdered his and then suicided, leaving she and her to raise their 3 children. Chief Complaint "I haven't had any anxiety.". Subjective Patient was seen & assessed interval progress reviewed with Treatment Team. The patient says that she slept well, and so far today has had no anxiety. She is talking in groups, and finding comfort being with other people. She can't identify why her anxiety was so high at home, saying that she would get the children off to school, but then would want to get in the car and "get as far away from that house as I could". She is unable to say what it is about her house that triggers anxiety. Her did not come to visit last night. She has talked with staff about her support system, and wanting to reach out to friends when she is feeling anxious, but is hesitant, as she lost a friend in the past due to her depression. She denies SI today, and reports good sleep and appetite. Denies side effects to meds. Review of Systems Constitutional: No chills, No fatigue, No fever, No problem reported, No sweats , No weakness, No weight loss ENT: No dental problems, No hearing loss, No nasal symptoms, No problem reported, No sore throat, No tinnitus, No trouble swallowing, No unusual epistaxis Respiratory: No cough, No dyspnea at rest, No dyspnea on exertion, No hemoptysis, No problem reported, No shortness of breath, No sputum, No wheezing Cardiovascular: No PND, No chest pain, No claudication, No edema, No orthopnea , No palpitations, No problem reported Abdomen: No GI bleeding, No constipation, No diarrhea, No nausea, No pain, No problem reported, No vomiting Musculoskeletal: No calf pain, No joint pain, No muscle pain, No problem reported, No swelling Neurologic: No balance problems, No memory loss, No numbness/tingling, No paralysis, No problem reported, No vertigo, No weakness Psychiatric: + anxiety, + depression symptoms Integumentary: No bleeding, No color change, No itch, No new/changing skin lesions, No problem reported, No rash Sleep Information Total Hours of Sleep: 9.75 Meal Information Percent of Breakfast Consumed: 100 Percent of Lunch Consumed: 100 Percent of Dinner Consumed: 100 Mental Status Exam During interview pt is: alert and oriented, cooperative Appearance: appropriately dressed, appropriately groomed Eye contact is: good Motor behavior is: steady gait & station, no abnormal motor movements Speech: normal in rate, rhythm & volume Affect: blunted Mood is: depressed Thought process: linear, logical Thought content: reality based without delusions Suicidal thought are: denied Homicidal thoughts are: denied Hallucinations: denies auditory, denies visual Cognition: memory grossly intact, attention grossly intact Intelligence estimated to be: average Insight: poor Judgement: poor Impression Adjusting well to the structure and support of the milieu. Tolerating initiation of Seroquel without side effects. Will continue current meds, obtain OP records from [facility], and arrange for a family meeting. Plan (1) Major depressive disorder, recurrent severe without psychotic features 12/17 -Reduce Effexor XR to 150 mg. daily since higher dose has not been effective - Continue Seroquel 50 mg. HS -Q 15 min checks for safety - Encourage participation in group and individual counseling - Family meeting - Obtain records from and coordinate care with Her OP providers - Assist the patient to learn and utilize healthy coping strategies. - Continue OP dose of Trintellix - Continue Remeron 30 mg. HS (2) ROMÁN (generalized anxiety disorder) 12/17 - Ativan 0.5 mg. BID - Vistaril prn for anxiety or sleep - Assist the patient to explore mindfulness techniques, relaxation exercises , breathing exercises. - Other meds as above. (3) Type 1 diabetes mellitus 12/17 - Glycemic pharmacist consult to manage insulin BSG's (4) Nicotine dependence 12/17 - Counseled about the detrimental effects of smoking and have recommended smoking cessation - Nicorette gum and nicotine patch for cessation Discharge / Aftercare Planning Primary Care Physician: Name: Therapist: Name: Apryl Petty with [facility] Date of Appointment: December 17, 2016 Demographic Analyst: Name: Herminio Collins with [employer] Visit Code E&M Code: 48722 Risk Factors Assessment : Yes /single/: No Higher / Fall in social status: No Access to guns: No Health problems: Yes Mental Health Diagnoses: Yes Substance use disorders: No Previous psychiatric stay: Yes Hopelessness: No Smoker: Yes Protective Factors Assessment Jewish beliefs: Yes : Yes Responsible for young children: Yes Employed: No Stable relationships: Yes Data Vital Signs Last 24 Hrs: Date Time Temp Pulse Resp B/P Pulse Ox O2 Delivery O2 Flow Rate FiO2 12/17/16 07:06 36.6 80 16 99/65 121/84 Meds Administered Last 24 Hrs: Meds Administered (Past 24Hrs) Medications (Trade) Dose Ordered Sig/Andrew Route Start Time Stop Time Status Last Admin Dose Admin Atorvastatin Calcium (Lipitor Tab) 10 mg QAM PO 12/16/16 09:00 01/15/17 08:59 12/17/16 09:28 10 MG Insulin Human NPH (novoLIN-N NPH) 15 units TODAY@2130 SQ 12/15/16 21:30 12/15/16 21:31 DC 12/15/16 21:54 15 UNITS Lorazepam (Ativan Tab) 0.5 mg BID PO 12/15/16 21:00 01/14/17 20:59 12/17/16 09:27 0.5 MG Mirtazapine (Remeron Tab) 30 mg HS PO 12/15/16 21:00 01/14/17 20:59 12/16/16 21:18 30 MG Pantoprazole Sodium (Protonix Tab) 40 mg QAM PO 12/16/16 09:00 01/15/17 08:59 12/17/16 09:28 40 MG Venlafaxine HCl (effeXOR EXTENDED REL CAP) 225 mg QAM PO 12/16/16 09:00 12/16/16 11:14 DC 12/16/16 09:27 225 MG Insulin Aspart (novoLOG ASPART) 1 units ACHS SQ 12/15/16 21:00 12/15/16 22:42 DC 12/15/16 21:47 9 UNITS Insulin Glargine (Lantus Solostar Pen) 8 unit QAM SC 12/16/16 09:00 01/15/17 08:59 12/17/16 09:30 8 UNIT Nicotine (Nicoderm Cq 21MG Patch) 1 patch QAM TD 12/16/16 09:00 01/15/17 08:59 12/17/16 09:28 1 PATCH Brexpiprazole (Rexulti) 1 mg DAILY PO 12/16/16 09:00 12/16/16 11:14 DC 12/16/16 09:27 1 MG Vortioxetine (Trintellix) 20 mg QAM PO 12/16/16 09:00 01/15/17 08:59 12/17/16 09:28 20 MG Insulin Aspart (novoLOG ASPART) SLIDING SCALE 0200 SQ 12/16/16 02:00 12/16/16 02:01 DC 12/16/16 02:16 4 UNITS Insulin Aspart (novoLOG ASPART) SLIDING SCALE ACHS SQ 12/16/16 08:00 01/15/17 07:59 12/17/16 09:34 9 UNITS Venlafaxine HCl (effeXOR EXTENDED REL CAP) 150 mg QAM PO 12/17/16 09:00 01/16/17 08:59 12/17/16 09:27 150 MG Quetiapine Fumarate (seroQUEL TAB) 50 mg HS PO 12/16/16 22:00 01/15/17 21:59 12/16/16 21:18 50 MG Insulin Human NPH (novoLIN-N NPH) 17 units HS SQ 12/16/16 22:00 01/15/17 21:59 12/16/16 21:22 17 UNITS Metformin HCl (Glucophage Tab) 500 mg DAILYBB PO 12/17/16 09:30 01/16/17 09:29 12/17/16 09:35 500 MG Lab Results Last 24 Hrs: Last 24 Hours Test 12/16/16 17:15 12/16/16 20:30 12/17/16 08:00 12/17/16 12:29 Bedside Glucose 459 mg/dl 99 mg/dl 253 mg/dl 118 mg/dl Problem Qualifiers (1) Type 1 diabetes mellitus: Diabetes mellitus complication status: without complication Qualified Codes: E10.9 - Type 1 diabetes mellitus without complications (2) Nicotine dependence: Nicotine product type: cigarettes
[2016-12-17 14:51] VITALS: BMI 19.5
--- NOTE | 2016-12-17 15:51 | Pharmacy Progress Note ---
Glycemic Control: Progress Nt Date of Service December 17, 2016. Scope Glycemic Pharmacist consulted by Dr Meléndez on 12/13/16 for glycemic control and to write orders per [facility] inpatient glycemic control protocol. Objective Accuchecks BSG (last 24hrs): Test 12/16/16 17:15 12/16/16 20:30 12/17/16 08:00 12/17/16 12:29 Bedside Glucose 459 mg/dl (70-90) 99 mg/dl (70-90) 253 mg/dl (70-90) 118 mg/dl (70-90) Recent Pertinent Medications Outpatient Anti-diabetic Regimen: * Lantus 8 units sub-q qam (pt has confirmed she has not missed any of these doses 12/13, 12/14, 12/15) * NPH 20 units sub-q qPM (pt may have received only 10 units when in ED Fri evening, 12/13) * Novolog per SSI. Average dose with B / L / D approximately 8 units / 4 units / 7 units SLIDING SCALE: 20-59= QAM(6 units) L(2 units) QPM(5 units) HS(0 units) 60-99= QAM(7) L(3) QPM(6) HS(0) 100-139= QAM(8) L(4) QPM(7) HS(0) 140-179= QAM(8) L(4) QPM(7) HS(0) 180-219= QAM(9) L(5) QPM(8) HS(1) 220-259= QAM(10) L(6) QPM(9) HS(2) 260-299= QAM(11) L(7) QPM(10) HS(3) 300-339= QAM(12) L(8) QPM(11) HS(4) 340-379= QAM(13) L(9) QPM(12) HS(5) 380-419= QAM(14) L(10) QPM(13) HS(6) 420-459= QAM(15) L(11) QPM(14) HS(7) 460-499= QAM(16) L(12) QPM(15) HS(8) 500-539= QAM(17) L(13) QPM(16) HS(9) * metformin 500mg po qam, 1000mg po qpm Assessment & Plan ASSESSMENT: * 56yo type one diabetic with unknown degree of outpatient control. Will order A1c per protocol * BSGs ranged from 60 to 473 mg/dL over the past 24 hours * Low BSG was likely due to overnight Novolog correction + NPH --> no further overnight correction scheduled * BSG of 473 mg/dL was around the time patient drank a Gingerale * Patient received 57 units of insulin on 12/16 - 32 units bolus, 25 units bolus * Fasting elevated - Will increase NPH to home dose * Better meal time coverage desired - Will tighten CF * Metformin will be resumed today PLAN FOR INPATIENT GLYCEMIC CONTROL: * Resume Metformin 500 mg with breakfast + 1000 mg with dinner * Basal insulin * Lantus 8 units SQ daily in AM {this is outpatient dosing} * Increase to NPH 20 units SQ HS {this is outpatient dose} * Bolus insulin * NovoLog per scale ACHS or Q6hrs while NPO * Goal Range: Low 100 mg/dL - High 140 mg/dL * Tighten Correction Factor: 30 mg/dL/unit * Remove carb ratio (due to metformin being added) RECOMMENDATIONS FOR DISCHARGE: * awaited * Please note that the plan above was derived based on current level of insulin resistance and hospital stress. These recommendations are appropriate for inpatient admission only. Plan of care upon discharge will need to be reassessed to avoid potential outpatient hypo/hyperglycemia. Thank you.
[2016-12-17] MEDS: QUETIAPINE FUMARATE 25 MG TAB PO SCH (21:51)
[2016-12-17] MEDS: MIRTAZAPINE TAB 15 MG TAB PO SCH (21:51)
[2016-12-17] MEDS ORDERED: INSULIN ASPART 100 UNITS/ML 3 ML PEN SQ SCH (22:00)
[2016-12-17] MEDS: INSULIN HUMAN NPH SQ SCH (22:02)
[2016-12-18] MEDS ORDERED: INSULIN ASPART 100 UNITS/ML 3 ML PEN SQ SCH (02:00)
[2016-12-18 06:53] VITALS: BP_SYST 108; BP_SYST 115; BP_DIAS 70; BP_DIAS 75; PULSE 61; PULSE 66; TEMP 36.4
--- NOTE | 2016-12-18 07:46 | Pharmacy Progress Note ---
Glycemic Control: Progress Nt Date of Service December 18, 2016. Scope Glycemic Pharmacist consulted by Dr Meléndez on 12/13/16 for glycemic control and to write orders per [facility] inpatient glycemic control protocol. Objective Accuchecks BSG (last 24hrs): Test 12/17/16 08:00 12/17/16 12:29 12/17/16 17:29 12/17/16 21:11 Bedside Glucose 253 mg/dl (70-90) 118 mg/dl (70-90) 64 mg/dl (70-90) 411 mg/dl (70-90) Test 12/18/16 02:06 Bedside Glucose 179 mg/dl (70-90) Laboratory Data (last 24hrs) Test 12/18/16 07:15 HbA1c: Test 12/18/16 07:15 Recent Pertinent Medications Outpatient Anti-diabetic Regimen: * Lantus 8 units sub-q qam (pt has confirmed she has not missed any of these doses 12/13, 12/14, 12/15) * NPH 20 units sub-q qPM (pt may have received only 10 units when in ED Fri evening, 12/13) * Novolog per SSI. Average dose with B / L / D approximately 8 units / 4 units / 7 units SLIDING SCALE: 20-59= QAM(6 units) L(2 units) QPM(5 units) HS(0 units) 60-99= QAM(7) L(3) QPM(6) HS(0) 100-139= QAM(8) L(4) QPM(7) HS(0) 140-179= QAM(8) L(4) QPM(7) HS(0) 180-219= QAM(9) L(5) QPM(8) HS(1) 220-259= QAM(10) L(6) QPM(9) HS(2) 260-299= QAM(11) L(7) QPM(10) HS(3) 300-339= QAM(12) L(8) QPM(11) HS(4) 340-379= QAM(13) L(9) QPM(12) HS(5) 380-419= QAM(14) L(10) QPM(13) HS(6) 420-459= QAM(15) L(11) QPM(14) HS(7) 460-499= QAM(16) L(12) QPM(15) HS(8) 500-539= QAM(17) L(13) QPM(16) HS(9) * metformin 500mg po qam, 1000mg po qpm Assessment & Plan ASSESSMENT: * 56yo type one diabetic with A1c of 8.3% * 12/17/16 --> Metformin resumed, NPH increased to home dose of 20 units due to elevated fasting * BSGs ranged from 64 to 411 mg/dL over the past 24 hours * Pt was asymptomatic with BSG of 64 mg/dL - did not require treatment * BSG of 411 mg/dL was likely due to lack of correctional/prandial insulin at dinnertime * Patient received 57 units of insulin on 12/16 - 32 units bolus, 25 units bolus * Will tighten CF and add back CR (patient is type 1, therefore, will need prandial coverage) * Conservative change per patient is insulin sensitive- > CF/CR of 19/06 was too tight for patient PLAN FOR INPATIENT GLYCEMIC CONTROL: * Metformin 500 mg with breakfast + 1000 mg with dinner * Basal insulin - continue same * Lantus 8 units SQ daily in AM {this is outpatient dosing} * NPH 20 units SQ HS {this is outpatient dose} * Bolus insulin * NovoLog per scale ACHS or Q6hrs while NPO * Goal Range: Low 100 mg/dL - High 140 mg/dL * Loosen Correction Factor: 35 mg/dL/unit * Resume Carb ratio: 1 units per 11 grams of carbohydrate RECOMMENDATIONS FOR DISCHARGE: * Awaited * Please note that the plan above was derived based on current level of insulin resistance and hospital stress. These recommendations are appropriate for inpatient admission only. Plan of care upon discharge will need to be reassessed to avoid potential outpatient hypo/hyperglycemia. Thank you.
[2016-12-18 08:11] LABS: CHOLESTEROL/HDL RATIO 2.2
--- NOTE | 2016-12-18 08:11 | Psychiatric Progress Notes ---
Progress Note Date of Service December 18, 2016. Interval History 56 yo female admitted voluntarily on 12/16 with severe depression, anxiety and suicidality. She has had chronic struggles with depression and anxiety, worsened after her son murdered his and then suicided, leaving she and her to raise their 3 children. Chief Complaint "Better than when I first came". Subjective Patient was seen & assessed interval progress reviewed with Treatment Team. Staff report she has been worried about asking her for a family meeting , saying he doesn't believe in mental health. She reports anxiety is much improved, although still feels anxious when she thinks about "being discharged and going home, don't want to be the way I was," but is worried she "won't be able to function at home. Just want to to feel like myself again. I haven't felt like myself for a long time." She is interested in involving her , but he has told her he doesn't want to come as he will be blamed. She hopes that staff will be able to talk to him and encourage him to participate. She'd like to explore ways that he can help her, and says there are many things he already does that help her (does all the cooking and helps when she is feeling more depressed). She had been considering leaving him, but now says she doesn't really want her marriage to end. She says they both struggle with communication. She denies SI and feels safe here. Sleep Information Total Hours of Sleep: 6.75 Meal Information Percent of Breakfast Consumed: 100 Percent of Lunch Consumed: 100 Percent of Dinner Consumed: 100 Mental Status Exam During interview pt is: alert and oriented, cooperative Appearance: appropriately dressed, appropriately groomed Eye contact is: good Motor behavior is: steady gait & station, no abnormal motor movements Speech: normal in rate, rhythm & volume Affect: blunted Mood is: depressed (but improved) Thought process: linear, logical Thought content: reality based without delusions Suicidal thought are: denied Homicidal thoughts are: denied Hallucinations: denies auditory, denies visual Cognition: memory grossly intact, attention grossly intact Intelligence estimated to be: average Insight: poor Judgement: poor Impression Adjusting well to the structure and support of the milieu, feels less anxious here, but is very worried about being discharged prematurely and decompensating upon returning to stressors at home. Tolerating initiation of Seroquel without side effects. Will continue current meds, obtain OP records from [facility], and arrange for a family meeting. She states her dismissed her requests that he be involved in treatment, fearing that he would be blamed for her problems, and is hopeful but staff can help encourage him to come in for a meeting. Plan (1) Major depressive disorder, recurrent severe without psychotic features 12/17 - Reduce Effexor XR to 150 mg. daily since higher dose has not been effective - Continue Seroquel 50 mg. HS - Q 15 min checks for safety - Encourage participation in group and individual counseling - Family meeting - Obtain records from and coordinate care with Her OP providers - Assist the patient to learn and utilize healthy coping strategies. - Continue OP dose of Trintellix - Continue Remeron 30 mg. HS 12/18 - Continue med changes as above - Fasting labs for monitoring on an atypical: lipids WNLs, glucose elevated 297, Hgb A1C elevated at 8.6 (est ave glucose 192). - Arrange family meeting with and ? daughter - wants help in discussion communication issues, conflict within the family, and how they can help her manage her depression (2) ROMÁN (generalized anxiety disorder) 12/17 - Ativan 0.5 mg. BID - Vistaril prn for anxiety or sleep - Assist the patient to explore mindfulness techniques, relaxation exercises , breathing exercises. - Other meds as above. (3) Type 1 diabetes mellitus 12/17 - Glycemic pharmacist consult to manage insulin BSG's (4) Nicotine dependence 12/17 - Counseled about the detrimental effects of smoking and have recommended smoking cessation - Nicorette gum and nicotine patch for cessation Discharge / Aftercare Planning Primary Care Physician: Name: Therapist: Name: Apryl Petty with [facility] Date of Appointment: December 17, 2016 Rubber Splicer: Name: Herminio Collins with [employer] Visit Code E&M Code: 72652 Risk Factors Assessment : Yes /single/: No Higher / Fall in social status: No Access to guns: No Health problems: Yes Mental Health Diagnoses: Yes Substance use disorders: No Previous psychiatric stay: Yes Hopelessness: No Smoker: Yes Protective Factors Assessment Yazidism beliefs: Yes : Yes Responsible for young children: Yes Employed: No Stable relationships: Yes Data Vital Signs Last 24 Hrs: Date Time Temp Pulse Resp B/P Pulse Ox O2 Delivery O2 Flow Rate FiO2 12/18/16 06:53 36.4 66 16 115/70 61 108/75 Meds Administered Last 24 Hrs: Meds Administered (Past 24Hrs) Medications (Trade) Dose Ordered Sig/Andrew Route Start Time Stop Time Status Last Admin Dose Admin Atorvastatin Calcium (Lipitor Tab) 10 mg QAM PO 12/16/16 09:00 01/15/17 08:59 12/17/16 09:28 10 MG Pantoprazole Sodium (Protonix Tab) 40 mg QAM PO 12/16/16 09:00 01/15/17 08:59 12/17/16 09:28 40 MG Venlafaxine HCl (effeXOR EXTENDED REL CAP) 225 mg QAM PO 12/16/16 09:00 12/16/16 11:14 DC 12/16/16 09:27 225 MG Insulin Glargine (Lantus Solostar Pen) 8 unit QAM SC 12/16/16 09:00 01/15/17 08:59 12/17/16 09:30 8 UNIT Nicotine (Nicoderm Cq 21MG Patch) 1 patch QAM TD 12/16/16 09:00 01/15/17 08:59 12/17/16 09:28 1 PATCH Brexpiprazole (Rexulti) 1 mg DAILY PO 12/16/16 09:00 12/16/16 11:14 DC 12/16/16 09:27 1 MG Vortioxetine (Trintellix) 20 mg QAM PO 12/16/16 09:00 01/15/17 08:59 12/17/16 09:28 20 MG Venlafaxine HCl (effeXOR EXTENDED REL CAP) 150 mg QAM PO 12/17/16 09:00 01/16/17 08:59 12/17/16 09:27 150 MG Quetiapine Fumarate (seroQUEL TAB) 50 mg HS PO 12/16/16 22:00 01/15/17 21:59 12/17/16 21:51 50 MG Insulin Human NPH (novoLIN-N NPH) 17 units HS SQ 12/16/16 22:00 12/17/16 14:06 DC 12/16/16 21:22 17 UNITS Metformin HCl (Glucophage Tab) 500 mg DAILYBB PO 12/17/16 09:30 01/16/17 09:29 12/17/16 09:35 500 MG Metformin HCl (Glucophage Tab) 1,000 mg DAILYBD PO 12/17/16 17:15 01/16/17 17:14 12/17/16 18:06 1,000 MG Insulin Human NPH (novoLIN-N NPH) 20 units HS SQ 12/17/16 22:00 01/16/17 21:59 12/17/16 22:02 20 UNITS Insulin Aspart (novoLOG ASPART) SLIDING SCALE ACHS SQ 12/17/16 22:00 12/17/16 22:01 DC 12/17/16 22:01 14 UNITS Lab Results Last 24 Hrs: Last 24 Hours Test 12/17/16 12:29 12/17/16 17:29 12/17/16 21:11 12/18/16 02:06 Bedside Glucose 118 mg/dl 64 mg/dl 411 mg/dl 179 mg/dl Test 12/18/16 07:15 Fasting Glucose 298 mg/dl Triglycerides Level 63 mg/dl Cholesterol Level 151 mg/dl HDL Cholesterol 68 mg/dl LDL Cholesterol, Calculated 70 mg/dl VLDL Cholesterol, Calculated 13 mg/dl Cholesterol/HDL Ratio 2.2 Problem Qualifiers (1) Type 1 diabetes mellitus: Diabetes mellitus complication status: without complication Qualified Codes: E10.9 - Type 1 diabetes mellitus without complications (2) Nicotine dependence: Nicotine product type: cigarettes
[2016-12-18] MEDS: LORAZEPAM 0.5 MG TAB PO SCH ×2 (09:10→20:53)
[2016-12-18] MEDS: METFORMIN HCL 500 MG TAB PO SCH ×2 (09:10→17:31)
[2016-12-18] MEDS: VORTIOXETINE HBR 20 MG PO SCH (09:11)
[2016-12-18] MEDS: ATORVASTATIN 10 MG TAB PO SCH (09:11)
[2016-12-18] MEDS: VENLAFAXINE HCL XR 75 MG CAPXR PO SCH (09:11)
[2016-12-18] MEDS: PANTOprazole SOD 40 MG TAB PO SCH (09:11)
[2016-12-18] MEDS: NICOTINE 21 MG/24 HR TDSY TD SCH (09:15)
[2016-12-18] MEDS: INSULIN GLARGINE SOLOSTAR 100 UNITS/ML 3 ML PEN SC SCH (09:37)
[2016-12-18] MEDS: INSULIN ASPART 100 UNITS/ML 3 ML PEN SQ SCH ×4 (09:38→20:53)
[2016-12-18 09:46] LABS: ESTIMATED AVERAGE GLUCOSE 192 mg/dl; HA1C FLAG Normal (Normal)
[2016-12-18 14:37] VITALS: Ht 154.9 cm; Wt 46.9 kg
[2016-12-18] MEDS: QUETIAPINE FUMARATE 25 MG TAB PO SCH (20:53)
[2016-12-18] MEDS: MIRTAZAPINE TAB 15 MG TAB PO SCH (20:53)
[2016-12-18] MEDS: INSULIN HUMAN NPH SQ SCH (20:57)
[2016-12-19 06:40] VITALS: BP_SYST 121; BP_SYST 125; BP_DIAS 74; BP_DIAS 81; PULSE 64; PULSE 76; TEMP 36.8
[2016-12-19] MEDS: LORAZEPAM 0.5 MG TAB PO SCH ×2 (08:59→21:42)
[2016-12-19] MEDS: PANTOprazole SOD 40 MG TAB PO SCH (08:59)
[2016-12-19] MEDS: VORTIOXETINE HBR 20 MG PO SCH (08:59)
[2016-12-19] MEDS: METFORMIN HCL 500 MG TAB PO SCH ×2 (08:59→17:34)
[2016-12-19] MEDS: VENLAFAXINE HCL XR 75 MG CAPXR PO SCH (08:59)
[2016-12-19] MEDS: ATORVASTATIN 10 MG TAB PO SCH (08:59)
[2016-12-19] MEDS: NICOTINE 21 MG/24 HR TDSY TD SCH (09:00)
[2016-12-19] MEDS: INSULIN GLARGINE SOLOSTAR 100 UNITS/ML 3 ML PEN SC SCH (09:43)
[2016-12-19] MEDS: INSULIN ASPART 100 UNITS/ML 3 ML PEN SQ SCH ×4 (09:45→22:02)
--- NOTE | 2016-12-19 11:20 | Pharmacy Progress Note ---
Glycemic Control: Progress Nt Date of Service Dec 19, 2016. Scope Glycemic Pharmacist consulted by Dr Meléndez on 12/13/16 for glycemic control and to write orders per [facility] inpatient glycemic control protocol. Objective Accuchecks BSG (last 24hrs): Test 12/18/16 12:09 12/18/16 17:25 12/18/16 20:43 12/19/16 07:42 Bedside Glucose 165 mg/dl (70-90) 99 mg/dl (70-90) 151 mg/dl (70-90) 75 mg/dl (70-90) HbA1c: Test 12/18/16 07:15 Hemoglobin A1c 8.3 % (4.5-5.6) H Recent Pertinent Medications Outpatient Anti-diabetic Regimen: * Lantus 8 units sub-q qam (pt has confirmed she has not missed any of these doses 12/13, 12/14, 12/15) * NPH 20 units sub-q qPM (pt may have received only 10 units when in ED Fri evening, 12/13) * Novolog per SSI. Average dose with B / L / D approximately 8 units / 4 units / 7 units SLIDING SCALE: 20-59= QAM(6 units) L(2 units) QPM(5 units) HS(0 units) 60-99= QAM(7) L(3) QPM(6) HS(0) 100-139= QAM(8) L(4) QPM(7) HS(0) 140-179= QAM(8) L(4) QPM(7) HS(0) 180-219= QAM(9) L(5) QPM(8) HS(1) 220-259= QAM(10) L(6) QPM(9) HS(2) 260-299= QAM(11) L(7) QPM(10) HS(3) 300-339= QAM(12) L(8) QPM(11) HS(4) 340-379= QAM(13) L(9) QPM(12) HS(5) 380-419= QAM(14) L(10) QPM(13) HS(6) 420-459= QAM(15) L(11) QPM(14) HS(7) 460-499= QAM(16) L(12) QPM(15) HS(8) 500-539= QAM(17) L(13) QPM(16) HS(9) * metformin 500mg po qam, 1000mg po qpm Assessment & Plan ASSESSMENT: * 56yo type one diabetic with A1c of 8.3% * BSGs ranged from 99 to 281 mg/dL over the past 24 hours * Fasting BSG 75 mg/dL this AM * Given this significant trend down from yesterday (fasting was 281), half dose Lantus given * Reduce NPH dose tonight so that the entire basal regimen is reduced by 20% * Patient seems to be very brittle this admission with extreme highs and BSGs < 100 in the same day * Loosen goal range to 140-180 mg/dL to avoid hypoglycemia * I would be satisfied at this point with BSGs 80-250 mg/dL * Continue to be conservative moving forward in hopes to avoid extreme highs/ lows in brittle Type1 PLAN FOR INPATIENT GLYCEMIC CONTROL: * Metformin 500 mg with breakfast + 1000 mg with dinner * Reduce Basal insulin * Lantus 4 units SQ AM, but moving forward Lantus 6 units SQ AM * NPH 18 units SQ HS * Bolus insulin * NovoLog per scale ACHS or Q6hrs while NPO * Goal Range: Low 140 mg/dL - High 180 mg/dL * Correction Factor: 35 mg/dL/unit * Carb ratio: 1 units per 11 grams of carbohydrate RECOMMENDATIONS FOR DISCHARGE: * Awaited * Please note that the plan above was derived based on current level of insulin resistance and hospital stress. These recommendations are appropriate for inpatient admission only. Plan of care upon discharge will need to be reassessed to avoid potential outpatient hypo/hyperglycemia. Thank you.
--- NOTE | 2016-12-19 12:11 | Psychiatric Progress Notes ---
Progress Note Date of Service Dec 19, 2016. Interval History 56 yo female admitted voluntarily on 12/16 with severe depression, anxiety and suicidality. She has had chronic struggles with depression and anxiety, worsened after her son murdered his and then suicided, leaving she and her to raise their 3 children. Chief Complaint "not as anxious". Subjective Patient was seen & assessed interval progress reviewed with nursing. Patient had a phone meeting with this morning but reports that "nothing was accomplished." He was washing the dishes and then the dog was barking because someone came to the house and he got off the phone. She reports that her anxiety is greatly improved but is concerned that is she goes back home, it will return as the situation there is unchanged. Children finished school yesterday. Oldest grandchild attends [employer] school so she is always at home and the 15 year old attended school 1/2 day and then had online classes in the afternoon. Youngest grandchild attend school all day. Patient says he is her "rhianna" and she is not stressed by having him at home all day. She relates that one of her biggest stressors at home is her cluttered house. She says that it is hard to her to throw things away and keep things organized. She feels that she is ignored at home and relates that her 15 year old granddaughter took over the bathroom drawers that the patient was using. She relates that her is tired of her mental health issues and she feels guilty about this. She has thoughts that her family would be "better off" without her. She denies that she has suicidal intention or plan or thoughts of harming anyone else. Her depression has improved since [facility] depressed and normal." She feels that she will always be depressed as has been struggling with depression since she was a teenager. She reports no side effects from the Seroquel and seems to be much less anxious. History of significant family conflict. Patient son and have not spoken to each other for over a year due to issues with how brother's estate was handled. Patient relates that she has not had any visitors during her stay and wishes her would visit, but she doesn't think he will. Review of Systems negative Sleep Information Total Hours of Sleep: 9.50 Meal Information Percent of Breakfast Consumed: 100 Percent of Lunch Consumed: 100 Percent of Dinner Consumed: 100 Mental Status Exam During interview pt is: alert and oriented, cooperative Appearance: appropriately dressed, appropriately groomed Eye contact is: good Motor behavior is: steady gait & station, no abnormal motor movements Speech: normal in rate, rhythm & volume Affect: blunted Mood is: depressed (but improved) Thought process: linear, logical, clear, coherent Thought content: reality based without delusions Suicidal thought are: denied Homicidal thoughts are: denied Hallucinations: denies auditory, denies visual Cognition: memory grossly intact, attention grossly intact Intelligence estimated to be: average Insight: poor Judgement: poor Summary of Past History Treatment for depression since teenage years" Hospitalized at [facility] in the [facility] ECT most recently at [facility] October 2016. Reports that psychiatrist there felt like her residual depression is situational. Impression Adjusting well to the structure and support of the milieu, feels less anxious here, but is very worried about being discharged prematurely and decompensating upon returning to stressors at home as happened in the past. Tolerating initiation of Seroquel without side effects. Will continue current meds, obtain OP records from [facility], and arrange for a family meeting. She states her dismissed her requests that he be involved in treatment, fearing that he would be blamed for her problems, and is hopeful but staff can help encourage him to come in for a meeting. Unfortunately phone meeting with unproductive as he had a visitor and cut call short. Plan (1) Major depressive disorder, recurrent severe without psychotic features 12/17 - Reduce Effexor XR to 150 mg. daily since higher dose has not been effective - Continue Seroquel 50 mg. HS - Q 15 min checks for safety - Encourage participation in group and individual counseling - Family meeting - Obtain records from and coordinate care with Her OP providers - Assist the patient to learn and utilize healthy coping strategies. - Continue OP dose of Trintellix - Continue Remeron 30 mg. HS 12/18 - Continue med changes as above - Fasting labs for monitoring on an atypical: lipids WNLs, glucose elevated 297, Hgb A1C elevated at 8.6 (est ave glucose 192). - Arrange family meeting with and ? daughter - wants help in discussion communication issues, conflict within the family, and how they can help her manage her depression 12/19 -Brief phone meeting with which was cut short due to getting visitor. Patient wishes would visit. -tolerating seroquel. (2) ROMÁN (generalized anxiety disorder) 12/17 - Ativan 0.5 mg. BID - Vistaril prn for anxiety or sleep - Assist the patient to explore mindfulness techniques, relaxation exercises , breathing exercises. - Other meds as above. (3) Type 1 diabetes mellitus 12/17 - Glycemic pharmacist consult to manage insulin BSG's (4) Nicotine dependence 12/17 - Counseled about the detrimental effects of smoking and have recommended smoking cessation - Nicorette gum and nicotine patch for cessation 12/19 - Patient expresses interest in smoking cessation. Using nicotine patch here and reports that cravings are minimal if she doesn't think about it. Discharge / Aftercare Planning Primary Care Physician: Name: Psychiatrist: Name: Nicho Carlson Phone Number: [phone] Date of Appointment: Dec 27, 2016 Time of Appointment: 1130 Appointment Notes: . Therapist: Name: Apryl Petty with [facility] Date of Appointment: December 17, 2016 Burlesque Dancer: Name: Herminio Collins with [email or web address] Visit Code E&M Code: 76881 Risk Factors Assessment : Yes /single/: No Higher / Fall in social status: No Access to guns: No Health problems: Yes Mental Health Diagnoses: Yes Substance use disorders: No Previous psychiatric stay: Yes Hopelessness: No Smoker: Yes Protective Factors Assessment Episcopal beliefs: Yes : Yes Responsible for young children: Yes Employed: No Stable relationships: Yes Data Vital Signs Last 24 Hrs: Date Time Temp Pulse Resp B/P (MAP) Pulse Ox O2 Delivery O2 Flow Rate FiO2 12/19/16 06:40 36.8 64 18 121/74 76 125/81 Meds Administered Last 24 Hrs: Current Inpatient Medications Medications (Trade) Dose Ordered Sig/Andrew Route Start Time Stop Time Status Last Admin Dose Admin Atorvastatin Calcium (Lipitor Tab) 10 mg QAM PO 12/16/16 09:00 01/15/17 08:59 12/19/16 08:59 10 MG Lorazepam (Ativan Tab) 0.5 mg BID PO 12/15/16 21:00 01/14/17 20:59 12/19/16 08:59 0.5 MG Mirtazapine (Remeron Tab) 30 mg HS PO 12/15/16 21:00 01/14/17 20:59 12/18/16 20:53 30 MG Pantoprazole Sodium (Protonix Tab) 40 mg QAM PO 12/16/16 09:00 01/15/17 08:59 12/19/16 08:59 40 MG Insulin Glargine (Lantus Solostar Pen) 8 unit QAM SC 12/16/16 09:00 01/15/17 08:59 12/19/16 09:43 4 UNIT Acetaminophen (Tylenol Tab) 650 mg Q4H PRN PO 12/15/16 19:30 01/14/17 19:29 Bismuth Subsalicylate (Kaopectate Liqd) 15 ml PRN PRN PO 12/15/16 19:30 01/14/17 19:29 Al Hydroxide/Mg Hydroxide (Maalox Susp) 30 ml Q4H PRN PO 12/15/16 19:30 01/14/17 19:29 Magnesium Hydroxide (Milk Of Magnesia Susp) 30 ml DAILY PRN PO 12/15/16 19:30 01/14/17 19:29 Sodium Chloride ([place] Nasal [place]) PRN PRN NA 12/15/16 19:30 01/14/17 19:29 Hydroxyzine HCl (Vistaril Tab) 50 mg HSZ PRN PO 12/15/16 19:30 01/14/17 19:29 Hydroxyzine HCl (Vistaril Tab) 25 mg Q4H PRN PO 12/15/16 19:30 01/14/17 19:29 Nicotine (Nicoderm Cq 21MG Patch) 1 patch QAM TD 12/16/16 09:00 01/15/17 08:59 12/19/16 09:00 1 PATCH Nicotine Polacrilex (Nicorette 2MG Gum) 1 piece Q2H PRN MT 12/15/16 19:30 01/14/17 19:29 Miscellaneous (Remove Nicoderm Patch) 1 ea HS N/A 12/15/16 21:00 01/14/17 20:59 Miscellaneous Information (Consult Glycemic Management Pharmacy) 1 ea UD PRN N/A 12/15/16 20:45 01/14/17 20:44 Vortioxetine (Trintellix) 20 mg QAM PO 12/16/16 09:00 01/15/17 08:59 12/19/16 08:59 20 MG Insulin Aspart (novoLOG ASPART) SLIDING SCALE ACHS SQ 12/16/16 08:00 01/15/17 07:59 Future hold 12/19/16 09:45 2 UNITS Venlafaxine HCl (effeXOR EXTENDED REL CAP) 150 mg QAM PO 12/17/16 09:00 01/16/17 08:59 12/19/16 08:59 150 MG Quetiapine Fumarate (seroQUEL TAB) 50 mg HS PO 12/16/16 22:00 01/15/17 21:59 12/18/16 20:53 50 MG Metformin HCl (Glucophage Tab) 500 mg DAILYBB PO 12/17/16 09:30 01/16/17 09:29 12/19/16 08:59 500 MG Metformin HCl (Glucophage Tab) 1,000 mg DAILYBD PO 12/17/16 17:15 01/16/17 17:14 12/18/16 17:31 1,000 MG Insulin Human NPH (novoLIN-N NPH) 15 units HS SQ 12/19/16 22:00 01/18/17 21:59 Lab Results Last 24 Hrs: Last 24 Hours Test 12/18/16 12:09 12/18/16 17:25 12/18/16 20:43 12/19/16 07:42 Bedside Glucose 165 mg/dl 99 mg/dl 151 mg/dl 75 mg/dl Test 12/19/16 11:37 Bedside Glucose 204 mg/dl Problem Qualifiers (1) Type 1 diabetes mellitus: Diabetes mellitus complication status: without complication Qualified Codes: E10.9 - Type 1 diabetes mellitus without complications (2) Nicotine dependence: Nicotine product type: cigarettes
[2016-12-19] MEDS: QUETIAPINE FUMARATE 25 MG TAB PO SCH (21:42)
[2016-12-19] MEDS: MIRTAZAPINE TAB 15 MG TAB PO SCH (21:42)
[2016-12-19] MEDS: INSULIN HUMAN NPH SQ SCH (21:57)
[2016-12-19] MEDS ORDERED: INSULIN HUMAN NPH SQ SCH (22:00)
[2016-12-20 06:36] VITALS: BP_SYST 108; BP_SYST 97; BP_DIAS 62; BP_DIAS 64; PULSE 64; PULSE 75; TEMP 36.5
[2016-12-20] MEDS: INSULIN ASPART 100 UNITS/ML 3 ML PEN SQ SCH ×4 (08:00→20:39)
[2016-12-20] MEDS: METFORMIN HCL 500 MG TAB PO SCH ×2 (09:08→17:33)
[2016-12-20] MEDS: LORAZEPAM 0.5 MG TAB PO SCH ×2 (09:10→20:31)
[2016-12-20] MEDS: ATORVASTATIN 10 MG TAB PO SCH (09:10)
[2016-12-20] MEDS: VENLAFAXINE HCL XR 75 MG CAPXR PO SCH (09:10)
[2016-12-20] MEDS: VORTIOXETINE HBR 20 MG PO SCH (09:11)
[2016-12-20] MEDS: NICOTINE 21 MG/24 HR TDSY TD SCH (09:18)
[2016-12-20] MEDS: INSULIN GLARGINE SOLOSTAR 100 UNITS/ML 3 ML PEN SC SCH (09:20)
[2016-12-20] MEDS: PANTOprazole SOD 40 MG TAB PO SCH (10:24)
--- NOTE | 2016-12-20 14:59 | Psychiatric Progress Notes ---
Progress Note Date of Service Dec 20, 2016. Interval History 56 yo female admitted voluntarily on 12/16 with severe depression, anxiety and suicidality. She has had chronic struggles with depression and anxiety, worsened after her son murdered his and then suicided, leaving she and her to raise their 3 children. Chief Complaint "he's always negative". Subjective Patient was seen & assessed interval progress reviewed with Treatment Team. Patient acknowledges that she is worried about 's response to having his statement during family meeting reported to [facility]. Parents says that her case technician had reported his to [facility] earlier this year for things that he said to their grandson. They received a letter stating that it was unfounded. She believes he would not actually harm anyone but understands our status as mandated reporters. She reports that her anxiety is well managed here but continues to wonder if it is because she is away from her home situation or if it the medication. She reports no side effects from Seroquel which replaced Rexulti on admission. She reports that over the past couple months she has been so anxious she could "not sit still." This did not improve or may have worsened with Rexulti which was started on December 09 due to increased restlessness with Abilify (according to outpatient records from [facility]). She is participating in groups and interacting with peer and staff appropriately. She denies suicidal thought, intention or plan today and hesitantly says that she would not harm herself if she were at home because she has to take care of her grandchildren. Review of Systems negative Sleep Information Total Hours of Sleep: 7.00 Meal Information Percent of Breakfast Consumed: 100 Percent of Lunch Consumed: 100 Percent of Dinner Consumed: 100 Mental Status Exam During interview pt is: alert and oriented, cooperative Appearance: appropriately dressed, appropriately groomed Eye contact is: good Motor behavior is: steady gait & station, no abnormal motor movements Speech: normal in rate, rhythm & volume Affect: blunted Mood is: depressed (but improving over admission) Thought process: linear, logical, clear, coherent Thought content: reality based without delusions Suicidal thought are: denied Homicidal thoughts are: denied Hallucinations: denies auditory, denies visual Cognition: memory grossly intact, attention grossly intact Intelligence estimated to be: average Insight: poor Judgement: poor Summary of Past History Treatment for depression since teenage years" Hospitalized at [facility] ECT most recently at [facility] October 2016. Reports that psychiatrist there felt like her residual depression is situational. Impression Adjusting well to the structure and support of the milieu, feels less anxious here, but is very worried about being discharged prematurely and decompensating upon returning to stressors at home as happened in the past. Tolerating initiation of Seroquel without side effects. Will continue current meds, obtain OP records from [facility], and arrange for a family meeting. She states her dismissed her requests that he be involved in treatment, fearing that he would be blamed for her problems, and is hopeful but staff can help encourage him to come in for a meeting. Unfortunately phone meeting with unproductive as he had a visitor and cut call short. Plan (1) Major depressive disorder, recurrent severe without psychotic features 12/17 - Reduce Effexor XR to 150 mg. daily since higher dose has not been effective - Continue Seroquel 50 mg. HS - Q 15 min checks for safety - Encourage participation in group and individual counseling - Family meeting - Obtain records from and coordinate care with Her OP providers - Assist the patient to learn and utilize healthy coping strategies. - Continue OP dose of Trintellix - Continue Remeron 30 mg. HS 12/18 - Continue med changes as above - Fasting labs for monitoring on an atypical: lipids WNLs, glucose elevated 297, Hgb A1C elevated at 8.6 (est ave glucose 192). - Arrange family meeting with and ? daughter - wants help in discussion communication issues, conflict within the family, and how they can help her manage her depression 12/19 -Brief phone meeting with which was cut short due to getting visitor. Patient wishes would visit. -tolerating seroquel. 12/20 -Patient agrees to titrate Seroquel for therapeutic effect. She is tolerating well. Will increase to 100 mg at bedtime. (2) ROMÁN (generalized anxiety disorder) 12/17 - Ativan 0.5 mg. BID - Vistaril prn for anxiety or sleep - Assist the patient to explore mindfulness techniques, relaxation exercises , breathing exercises. - Other meds as above. (3) Type 1 diabetes mellitus 12/17 - Glycemic pharmacist consult to manage insuli BSG's 12/20 -continue pharmacy managment of BS. -patient has monthly appointments with Regi Du[facility] at [facility] in [place]. Her next appointment is January 06 at 11 am. Called [facility] with patient present to verify this appointment. (4) Nicotine dependence 12/17 - Counseled about the detrimental effects of smoking and have recommended smoking cessation - Nicorette gum and nicotine patch for cessation 12/19 - Patient expresses interest in smoking cessation. Using nicotine patch here and reports that cravings are minimal if she doesn't think about it. Discharge / Aftercare Planning Primary Care Physician: Name: Psychiatrist: Name: Nicho Carlson Phone Number: [phone] Date of Appointment: Dec 27, 2016 Time of Appointment: 1130 Appointment Notes: . Therapist: Name: Apryl Petty with [facility] Date of Appointment: Dec 25, 2016 Time of Appointment: 11:00am Bus Attendant: Name: Herminio Collins with [employer] Visit Code E&M Code: 32286 Risk Factors Assessment : Yes /single/: No Higher / Fall in social status: No Access to guns: No Health problems: Yes Mental Health Diagnoses: Yes Substance use disorders: No Previous psychiatric stay: Yes Hopelessness: No Smoker: Yes Protective Factors Assessment Spiritism beliefs: Yes : Yes Responsible for young children: Yes Employed: No Stable relationships: Yes Data Vital Signs Last 24 Hrs: Date Time Temp Pulse Resp B/P (MAP) Pulse Ox O2 Delivery O2 Flow Rate FiO2 12/20/16 06:36 36.5 64 16 108/64 75 97/62 Meds Administered Last 24 Hrs: Current Inpatient Medications Medications (Trade) Dose Ordered Sig/Andrew Route Start Time Stop Time Status Last Admin Dose Admin Atorvastatin Calcium (Lipitor Tab) 10 mg QAM PO 12/16/16 09:00 01/15/17 08:59 12/20/16 09:10 10 MG Lorazepam (Ativan Tab) 0.5 mg BID PO 12/15/16 21:00 01/14/17 20:59 12/20/16 09:10 0.5 MG Mirtazapine (Remeron Tab) 30 mg HS PO 12/15/16 21:00 01/14/17 20:59 12/19/16 21:42 30 MG Pantoprazole Sodium (Protonix Tab) 40 mg QAM PO 12/16/16 09:00 01/15/17 08:59 12/20/16 10:24 40 MG Acetaminophen (Tylenol Tab) 650 mg Q4H PRN PO 12/15/16 19:30 01/14/17 19:29 Bismuth Subsalicylate (Kaopectate Liqd) 15 ml PRN PRN PO 12/15/16 19:30 01/14/17 19:29 Al Hydroxide/Mg Hydroxide (Maalox Susp) 30 ml Q4H PRN PO 12/15/16 19:30 01/14/17 19:29 Magnesium Hydroxide (Milk Of Magnesia Susp) 30 ml DAILY PRN PO 12/15/16 19:30 01/14/17 19:29 Sodium Chloride ([place] Nasal [place]) PRN PRN NA 12/15/16 19:30 01/14/17 19:29 Hydroxyzine HCl (Vistaril Tab) 50 mg HSZ PRN PO 12/15/16 19:30 01/14/17 19:29 Hydroxyzine HCl (Vistaril Tab) 25 mg Q4H PRN PO 12/15/16 19:30 01/14/17 19:29 Nicotine (Nicoderm Cq 21MG Patch) 1 patch QAM TD 12/16/16 09:00 01/15/17 08:59 12/20/16 09:18 1 PATCH Nicotine Polacrilex (Nicorette 2MG Gum) 1 piece Q2H PRN MT 12/15/16 19:30 01/14/17 19:29 Miscellaneous (Remove Nicoderm Patch) 1 ea HS N/A 12/15/16 21:00 01/14/17 20:59 12/19/16 21:41 1 EA Miscellaneous Information (Consult Glycemic Management Pharmacy) 1 ea UD PRN N/A 12/15/16 20:45 01/14/17 20:44 Vortioxetine (Trintellix) 20 mg QAM PO 12/16/16 09:00 01/15/17 08:59 12/20/16 09:11 20 MG Insulin Aspart (novoLOG ASPART) SLIDING SCALE ACHS SQ 12/16/16 08:00 01/15/17 07:59 Future hold 12/20/16 12:00 8 UNITS Venlafaxine HCl (effeXOR EXTENDED REL CAP) 150 mg QAM PO 12/17/16 09:00 01/16/17 08:59 12/20/16 09:10 150 MG Quetiapine Fumarate (seroQUEL TAB) 50 mg HS PO 12/16/16 22:00 01/15/17 21:59 12/19/16 21:42 50 MG Metformin HCl (Glucophage Tab) 500 mg DAILYBB PO 12/17/16 09:30 01/16/17 09:29 12/20/16 09:08 500 MG Metformin HCl (Glucophage Tab) 1,000 mg DAILYBD PO 12/17/16 17:15 01/16/17 17:14 12/19/16 17:34 1,000 MG Insulin Glargine (Lantus Solostar Pen) 6 unit QAM SC 12/20/16 09:00 01/19/17 08:59 12/20/16 09:20 6 UNIT Insulin Human NPH (novoLIN-N NPH) 18 units HS SQ 12/19/16 22:00 01/18/17 21:59 12/19/16 21:57 18 UNITS Lab Results Last 24 Hrs: Last 24 Hours Test 12/19/16 17:16 12/19/16 21:04 12/20/16 08:49 12/20/16 12:09 Bedside Glucose 99 mg/dl 264 mg/dl 71 mg/dl 142 mg/dl Problem Qualifiers (1) Type 1 diabetes mellitus: Diabetes mellitus complication status: without complication Qualified Codes: E10.9 - Type 1 diabetes mellitus without complications (2) Nicotine dependence: Nicotine product type: cigarettes
[2016-12-20] MEDS: MIRTAZAPINE TAB 15 MG TAB PO SCH (20:31)
[2016-12-20] MEDS: QUETIAPINE FUMARATE 100 MG TAB PO SCH (20:31)
[2016-12-20] MEDS: INSULIN HUMAN NPH SQ SCH (20:35)
[2016-12-21 06:46] VITALS: BP_SYST 85; BP_SYST 97; BP_DIAS 58; BP_DIAS 62; PULSE 66; PULSE 74; TEMP 36.5
--- NOTE | 2016-12-21 08:33 | Pharmacy Progress Note ---
Glycemic Control: Progress Nt Date of Service Dec 21, 2016. Scope Glycemic Pharmacist consulted by Dr Meléndez on 12/13/16 for glycemic control and to write orders per [facility] inpatient glycemic control protocol. Objective Accuchecks BSG (last 24hrs): Test 12/20/16 08:49 12/20/16 12:09 12/20/16 17:05 12/20/16 20:24 Bedside Glucose 71 mg/dl (70-90) 142 mg/dl (70-90) 83 mg/dl (70-90) 253 mg/dl (70-90) HbA1c: Test 12/18/16 07:15 Hemoglobin A1c 8.3 % (4.5-5.6) H Recent Pertinent Medications Outpatient Anti-diabetic Regimen: * Lantus 8 units sub-q qam (pt has confirmed she has not missed any of these doses 12/13, 12/14, 12/15) * NPH 20 units sub-q qPM (pt may have received only 10 units when in ED Fri evening, 12/13) * Novolog per SSI. Average dose with B / L / D approximately 8 units / 4 units / 7 units SLIDING SCALE: 20-59= QAM(6 units) L(2 units) QPM(5 units) HS(0 units) 60-99= QAM(7) L(3) QPM(6) HS(0) 100-139= QAM(8) L(4) QPM(7) HS(0) 140-179= QAM(8) L(4) QPM(7) HS(0) 180-219= QAM(9) L(5) QPM(8) HS(1) 220-259= QAM(10) L(6) QPM(9) HS(2) 260-299= QAM(11) L(7) QPM(10) HS(3) 300-339= QAM(12) L(8) QPM(11) HS(4) 340-379= QAM(13) L(9) QPM(12) HS(5) 380-419= QAM(14) L(10) QPM(13) HS(6) 420-459= QAM(15) L(11) QPM(14) HS(7) 460-499= QAM(16) L(12) QPM(15) HS(8) 500-539= QAM(17) L(13) QPM(16) HS(9) * metformin 500mg po qam, 1000mg po qpm Assessment & Plan ASSESSMENT: * 56yo type one diabetic with A1c of 8.3% * BSGs ranged from 71 to 253 mg/dL over the past 24 hours * Fasting BSG 96 mg/dL this AM * Patient has been <100 mg/dL X 2 days in a row so adjustments were made to reduce her basal regimen slightly * As long as patient does not go any lower, I am going to make no further changes * Patient seems to be very brittle this admission with extreme highs and BSGs < 100 in the same day * Continue goal range 140-180 mg/dL to avoid hypoglycemia * I would be satisfied with BSGs 80-250 mg/dL * Continue to be conservative moving forward in hopes to avoid extreme highs/ lows in brittle Type1 PLAN FOR INPATIENT GLYCEMIC CONTROL: * Metformin 500 mg with breakfast + 1000 mg with dinner * Continue reduced basal insulin * Lantus 6 units SQ AM * NPH 18 units SQ HS * Bolus insulin * NovoLog per scale ACHS or Q6hrs while NPO * Goal Range: Low 140 mg/dL - High 180 mg/dL * Correction Factor: 35 mg/dL/unit * Carb ratio: 1 units per 11 grams of carbohydrate RECOMMENDATIONS FOR DISCHARGE: * Awaited * Please note that the plan above was derived based on current level of insulin resistance and hospital stress. These recommendations are appropriate for inpatient admission only. Plan of care upon discharge will need to be reassessed to avoid potential outpatient hypo/hyperglycemia. Thank you.
[2016-12-21] MEDS: VENLAFAXINE HCL XR 75 MG CAPXR PO SCH (09:11)
[2016-12-21] MEDS: METFORMIN HCL 500 MG TAB PO SCH ×2 (09:11→17:28)
[2016-12-21] MEDS: LORAZEPAM 0.5 MG TAB PO SCH ×2 (09:11→21:41)
[2016-12-21] MEDS: ATORVASTATIN 10 MG TAB PO SCH (09:12)
[2016-12-21] MEDS: PANTOprazole SOD 40 MG TAB PO SCH (09:12)
[2016-12-21] MEDS: NICOTINE 21 MG/24 HR TDSY TD SCH (09:12)
[2016-12-21] MEDS: VORTIOXETINE HBR 20 MG PO SCH (09:12)
[2016-12-21] MEDS: INSULIN GLARGINE SOLOSTAR 100 UNITS/ML 3 ML PEN SC SCH (09:17)
[2016-12-21] MEDS: INSULIN ASPART 100 UNITS/ML 3 ML PEN SQ SCH ×4 (09:23→21:59)
[2016-12-21] MEDS ORDERED: QUETIAPINE FUMARATE 25 MG TAB PO PRN (13:15)
--- NOTE | 2016-12-21 13:21 | Psychiatric Progress Notes ---
Progress Note Date of Service Dec 21, 2016. Interval History 56 yo female admitted voluntarily on 12/16 with severe depression, anxiety and suicidality. She has had chronic struggles with depression and anxiety, worsened after her son murdered his and then suicided, leaving she and her to raise their 3 children. Chief Complaint "I worry that I'm just not ready, what if I can't hold it together?". Subjective Patient was seen & assessed interval progress reviewed with nursing. Patient reports ongoing improvement with Seroquel. Denies any symptoms related to low BP. Gait steady. She is unsure if is aware of the CYS report but will discuss this with him today so staff can assist with her processing as needed as it is anticipated that he will be upset at treatment team. Patient is able to verbalize that it's based on his statements and not her fault. She would be amenable to FICS as previous positive response to an in home therapist and she doesn't believe that her will ever agree to marital therapy. Review of Systems Psych: denies symptoms other than stated above Constitutional: denied Cardiovascular: denied GI: denied Neurologic: denied Remainder of 10 body systems also reviewed and denied other than noted above. Sleep Information Total Hours of Sleep: 10.75 Meal Information Percent of Breakfast Consumed: 100 Percent of Lunch Consumed: 100 Percent of Dinner Consumed: 100 Mental Status Exam During interview pt is: alert and oriented, cooperative Appearance: appropriately dressed, appropriately groomed Eye contact is: good Motor behavior is: steady gait & station, no abnormal motor movements Speech: normal in rate, rhythm & volume Affect: other (broader) Mood is: depressed (but improving over admission) Thought process: linear, logical, clear, coherent Thought content: reality based without delusions Suicidal thought are: denied Homicidal thoughts are: denied Hallucinations: denies auditory, denies visual Cognition: memory grossly intact, attention grossly intact Intelligence estimated to be: average Insight: limited Judgement: limited Summary of Past History Treatment for depression since teenage years" Hospitalized at [facility] in the 1989 ECT most recently at [facility] October 2016. Reports that psychiatrist there felt like her residual depression is situational. Impression Adjusting well to the structure and support of the milieu, feels less anxious here, but is very worried about being discharged prematurely and decompensating upon returning to stressors at home as happened in the past. Tolerating initiation of Seroquel without side effects. CYS report re: 's statements completed by social psychologist on 12/20/16. Plan (1) Major depressive disorder, recurrent severe without psychotic features 12/17 - Reduce Effexor XR to 150 mg. daily since higher dose has not been effective - Continue Seroquel 50 mg. HS - Q 15 min checks for safety - Encourage participation in group and individual counseling - Family meeting - Obtain records from and coordinate care with Her OP providers - Assist the patient to learn and utilize healthy coping strategies. - Continue OP dose of Trintellix - Continue Remeron 30 mg. HS 12/18 - Continue med changes as above - Fasting labs for monitoring on an atypical: lipids WNLs, glucose elevated 297, Hgb A1C elevated at 8.6 (est ave glucose 192). - Arrange family meeting with and ? daughter - wants help in discussion communication issues, conflict within the family, and how they can help her manage her depression 12/19 -Brief phone meeting with which was cut short due to getting visitor. Patient wishes would visit. -tolerating seroquel. 12/20 -Patient agrees to titrate Seroquel for therapeutic effect. She is tolerating well. Will increase to 100 mg at bedtime. 12/21 --monitor BP, patient denies symptoms, she would like a prn as an option for home stress following discharge. Discussed Seroquel 12.5-25 mg po q6 prn. (2) ROMÁN (generalized anxiety disorder) 12/17 - Ativan 0.5 mg. BID - Vistaril prn for anxiety or sleep - Assist the patient to explore mindfulness techniques, relaxation exercises , breathing exercises. - Other meds as above. (3) Type 1 diabetes mellitus 12/17 - Glycemic pharmacist consult to manage insuli BSG's 12/20 -continue pharmacy managment of BS. -patient has monthly appointments with Regi Duarte [facility] at [facility] in [place]. Her next appointment is January 06 at 11 am. Called [facility] with patient present to verify this appointment. (4) Nicotine dependence 12/17 - Counseled about the detrimental effects of smoking and have recommended smoking cessation - Nicorette gum and nicotine patch for cessation 12/19 - Patient expresses interest in smoking cessation. Using nicotine patch here and reports that cravings are minimal if she doesn't think about it. Discharge / Aftercare Planning Primary Care Physician: Name: Appointment Notes: as needed Psychiatrist: Name: Nicho Carlson Phone Number: [phone] Date of Appointment: Dec 27, 2016 Time of Appointment: 1130 Appointment Notes: . Therapist: Name: Apryl Petty with [facility] Date of Appointment: Dec 25, 2016 Time of Appointment: 11:00am Television News Photographer: Name: Herminio Collins with [employer] or [phone] Date of Appointment: Dec 23, 2016 Time of Appointment: 8:00 Other: [facility] [place] Date of Appointment #1: Jan 06, 2017 Time of Appointment #1: 11am Visit Code E&M Code: 22456 Risk Factors Assessment : Yes /single/: No Higher / Fall in social status: No Access to guns: No Health problems: Yes Mental Health Diagnoses: Yes Substance use disorders: No Previous psychiatric stay: Yes Hopelessness: No Smoker: Yes Protective Factors Assessment Pentecostal beliefs: Yes : Yes Responsible for young children: Yes Employed: No Stable relationships: Yes Data Vital Signs Last 24 Hrs: Date Time Temp Pulse Resp B/P (MAP) Pulse Ox O2 Delivery O2 Flow Rate FiO2 12/21/16 06:46 36.5 66 16 97/62 74 85/58 Meds Administered Last 24 Hrs: Meds Administered (Past 24Hrs) Medications (Trade) Dose Ordered Sig/Andrew Route Start Time Stop Time Status Last Admin Dose Admin Insulin Glargine (Lantus Solostar Pen) 6 unit QAM SC 12/20/16 09:00 01/19/17 08:59 12/21/16 09:17 6 UNIT Insulin Human NPH (novoLIN-N NPH) 18 units HS SQ 12/19/16 22:00 01/18/17 21:59 12/20/16 20:35 18 UNITS Quetiapine Fumarate (seroQUEL TAB) 100 mg HS PO 12/20/16 22:00 01/19/17 21:59 12/20/16 20:31 100 MG Lab Results Last 24 Hrs: Last 24 Hours Test 12/20/16 17:05 12/20/16 20:24 12/21/16 08:51 12/21/16 12:18 Bedside Glucose 83 mg/dl 253 mg/dl 96 mg/dl 275 mg/dl Problem Qualifiers (1) Type 1 diabetes mellitus: Diabetes mellitus complication status: without complication Qualified Codes: E10.9 - Type 1 diabetes mellitus without complications (2) Nicotine dependence: Nicotine product type: cigarettes
[2016-12-21] MEDS: MIRTAZAPINE TAB 15 MG TAB PO SCH (21:41)
[2016-12-21] MEDS: QUETIAPINE FUMARATE 100 MG TAB PO SCH (21:41)
[2016-12-21] MEDS: INSULIN HUMAN NPH SQ SCH (21:59)
[2016-12-22] MEDS ORDERED: INSULIN ASPART 100 UNITS/ML 3 ML PEN SQ SCH (02:00)
[2016-12-22 06:39] VITALS: BP 103/70; PULSE 67; TEMP 36.8
[2016-12-22] MEDS: METFORMIN HCL 500 MG TAB PO SCH (09:21)
[2016-12-22] MEDS: LORAZEPAM 0.5 MG TAB PO SCH (09:21)
[2016-12-22] MEDS: VORTIOXETINE HBR 20 MG PO SCH (09:22)
[2016-12-22] MEDS: ATORVASTATIN 10 MG TAB PO SCH (09:22)
[2016-12-22] MEDS: VENLAFAXINE HCL XR 75 MG CAPXR PO SCH (09:22)
[2016-12-22] MEDS: PANTOprazole SOD 40 MG TAB PO SCH (09:22)
[2016-12-22] MEDS: NICOTINE 21 MG/24 HR TDSY TD SCH (09:24)
[2016-12-22] MEDS: INSULIN ASPART 100 UNITS/ML 3 ML PEN SQ SCH ×2 (09:28→12:00)
[2016-12-22] MEDS: INSULIN GLARGINE SOLOSTAR 100 UNITS/ML 3 ML PEN SC SCH (09:29)
[2016-12-22] MEDS ORDERED: QUET-115 PO (09:53)
[2016-12-22] MEDS ORDERED: SRQ25 PO (09:53)
[2016-12-22] MEDS ORDERED: Nicotine TD (09:53)
[2016-12-22] MEDS ORDERED: EFFSR75 PO (09:53)
--- NOTE | 2016-12-22 10:00 | Discharge Instructions ---
Discharge Information Report Includes Report will include the: Discharge Instructions & Summary Admission Admission Date / Time: December 15, 2016 at 18:52 Reason for Admission: Major Depressive Disorder W/ Suicidality Discharge Discharge Diagnosis / Problem: same Condition at Discharge: Good Discharge Goals Goal(s): Improve function, Improve disease control Activity Recommendations Activity Limitations: resume your previous activity . Instructions / Follow-Up Instructions / Follow-Up . SPECIAL CARE INSTRUCTIONS: 1. Follow through with your scheduled aftercare appointments. If unable to keep an appointment, please call to reschedule. 2. Take your medication only as prescribed. Medication should not be changed or stopped without the approval of your doctor. In the event of worsening symptoms or concerns about side effects, contact your doctor immediately. 3. Utilize new healthy coping skills, anger management skills, and stress management skills learned during your hospitalization. Journal feelings and process them with a support person. Identify stressors or situations that may result in relapse, deterioration or inappropriate behaviors and develop a plan to deal with those issues. 4. If your coping skills are ineffective and you are in crisis, contact your outpatient providers for direction. If unable to reach your providers, please call the CAN HELP LINE AT or go to the closest Emergency Room. 5. Avoid alcohol and un-prescribed drugs. 6. You have been provided with the Mental Health Advance Directives Pamphlet for your review. AFTERCARE APPOINTMENTS: * Please call your insurance company prior to your scheduled appointment to confirm your aftercare providers are covered. Take your insurance information to your appointments. . Discharge / Aftercare Planning Primary Care Physician: Name: Appointment Notes: as needed Psychiatrist: Name: Nicho Carlson Phone Number: [phone] Date of Appointment: Dec 27, 2016 Time of Appointment: 1130 Appointment Notes: . Therapist: Name Of Therapist: Apryl Petty with [facility] Date of Appointment: Dec 25, 2016 Time of Appointment: 11:00am Health Center Assistant: Name: Herminio Collins with [employer] or [phone] Date of Appointment: Dec 23, 2016 Time of Appointment: 8:00 Other: Name of Appointment #1: [facility] [place] Date of Appointment #1: Jan 06, 2017 Time of Appointment #1: 11am . Follow-Up Care Plan for Follow-Up Care: [facility] will contact you re: nicotine replacement coverage Current Hospital Diet Patient's current hospital diet: Diabetes Type 1 Diet Discharge Diet Recommended Diet: Diabetes Type 1 Diet Procedures Procedures Performed: No Pending Studies Pending Studies at Discharge: No Medical Emergencies . Who to Call and When: Medical Emergencies: For questions or emergencies related to your hospital stay, please contact the Inpatient Behavioral Health Unit at [phone]. A rock wool applicator is on-call 10/02 for the Behavioral Health Unit for emergencies At any time you feel your situation is an emergency, you may also call 911 immediately. . Non-Emergent Contact Non-Emergency issues call your: Primary Care Provider, Specialist (endocrine) Call Non-Emergent contact if: you have any medication questions (re: diabetes management, continue blood glucose checks) Advance Directives Existing Advance Directive: No Do You Have an Existing Mental: No Existing Living Will: No Existing Power of Maintenance Mechanic Supervisor: No Advance Directives Info Given: To Pt/S.O. Advance Directives Reason: Declines as Mental Health Visit. Discharge Summary Admission HPI Per the Admitting provider: see H&P co-transmitted with this document Hospital Course (1) Major depressive disorder, recurrent severe without psychotic features 12/17 - Reduce Effexor XR to 150 mg. daily since higher dose has not been effective - Continue Seroquel 50 mg. HS - Q 15 min checks for safety - Encourage participation in group and individual counseling - Family meeting - Obtain records from and coordinate care with Her OP providers - Assist the patient to learn and utilize healthy coping strategies. - Continue OP dose of Trintellix - Continue Remeron 30 mg. HS 12/18 - Continue med changes as above - Fasting labs for monitoring on an atypical: lipids WNLs, glucose elevated 297, Hgb A1C elevated at 8.6 (est ave glucose 192). - Arrange family meeting with and ? daughter - wants help in discussion communication issues, conflict within the family, and how they can help her manage her depression 12/19 -Brief phone meeting with which was cut short due to getting visitor. Patient wishes would visit. -tolerating seroquel. 12/20 -Patient agrees to titrate Seroquel for therapeutic effect. She is tolerating well. Will increase to 100 mg at bedtime. 12/21 --monitor BP, patient denies symptoms, she would like a prn as an option for home stress following discharge. Discussed Seroquel 12.5-25 mg po q6 prn. (2) ROMÁN (generalized anxiety disorder) 12/17 - Ativan 0.5 mg. BID - Vistaril prn for anxiety or sleep - Assist the patient to explore mindfulness techniques, relaxation exercises , breathing exercises. - Other meds as above. (3) Type 1 diabetes mellitus 12/17 - Glycemic pharmacist consult to manage insuli BSG's 12/20 -continue pharmacy managment of BS. -patient has monthly appointments with Regi Duarte [facility] at [facility] in [place]. Her next appointment is January 06 at 11 am. Called [facility] with patient present to verify this appointment. (4) Nicotine dependence 12/17 - Counseled about the detrimental effects of smoking and have recommended smoking cessation - Nicorette gum and nicotine patch for cessation 12/19 - Patient expresses interest in smoking cessation. Using nicotine patch here and reports that cravings are minimal if she doesn't think about it. 12/21--patient accepting of patches, admits still somewhat ambivalent, to sign release for Quitline and agreed to follow up call for counseling Risk Factors Assessment : Yes /single/: No Higher / Fall in social status: No Access to guns: No Health problems: Yes Mental Health Diagnoses: Yes Substance use disorders: No Previous psychiatric stay: Yes Hopelessness: No Smoker: Yes Protective Factors Assessment Zoroastrianism beliefs: Yes : Yes Responsible for young children: Yes Employed: No Stable relationships: Yes Day of Discharge Assessment Nell's mood and anxiety remain improved. She has had some low blood sugar overnight but diet here is admittedly much more controlled than at home and she is happy to resume her home diabetes regimen and notify endocrine as needed. She was able to speak with her about the CYS report yesterday and he did not project any anger toward her re: it. He continues to deny any intent or plan to harm the children and she feels safe to return home. She denies suicidal thoughts and her thoughts remain organized. She has typical anxiety about transition home and is accepting of rx for prn Seroquel. She is stable for discharge to outpatient level of care and has a home visit tomorrow am from [facility]. Laboratory Test 12/15/16 18:05 12/18/16 07:15 12/22/16 02:37 12/22/16 08:54 Urine Color DK YELLOW Urine Appearance CLEAR Urine pH 5.5 Urine Specific [place] 1.027 Urine Protein NEG Urine Glucose (UA) NEG Urine Ketones 2+ Urine Occult Blood TRACE Urine Nitrite NEG Urine Bilirubin NEG Urine Urobilinogen NEG Urine Leukocyte Esterase NEG Urine WBC (Auto) 1-5 Urine RBC (Auto) 5-10 Urine Hyaline Casts (Auto) 1-5 Urine Epithelial Cells (Auto) >30 Urine Bacteria (Auto) 1+ Urine Opiates Screen NEG Urine Methadone, Qualitative NEG Urine Barbiturates NEG Urine Phencyclidine (PCP) Level NEG Ur Amphetamine/Methamphetamine NEG MDMA (Ecstasy) Screen NEG Urine Benzodiazepines Screen NEG Urine Cocaine Metabolite NEG Urine Marijuana (THC) NEG Fasting Glucose 298 Estimated Average Glucose 192 Hemoglobin A1c 8.3 Triglycerides Level 63 Cholesterol Level 151 HDL Cholesterol 68 LDL Cholesterol, Calculated 70 VLDL Cholesterol, Calculated 13 Cholesterol/HDL Ratio 2.2 POC Glucose 93 248 Total Time Total Time Spent (min): Greater than 30 minutes Total Time Included: examination of the patient, medication reconciliation Tobacco Cessation at Discharge Smoking Status: Current Every Day Smoker FDA approved Prescription: nicotine replacement product ([place] Quitline referral for counseling) Problem Qualifiers (1) Type 1 diabetes mellitus: Diabetes mellitus complication status: without complication Qualified Codes: E10.9 - Type 1 diabetes mellitus without complications (2) Nicotine dependence: Nicotine product type: cigarettes
[2016-12-22] MEDS ORDERED: DESTROY THIS MEDICATION ONE (12:00)
== END 2016-12-22 14:30 | disposition home or self-care (01) | DRG 885 ==
LOC: C.EDB 17:44 → C.MHU 18:52
PROVIDERS: ADMIT Psychiatry & Neurology Psychiatry; ATTEND Psychiatry & Neurology Psychiatry
DX: F33.2 Major depressive disorder, recurrent severe without psychotic features (principal); F41.1 Generalized anxiety disorder; E10.9 Type 1 diabetes mellitus without complications; F17.210 Nicotine dependence, cigarettes, uncomplicated; Z88.8 Allergy status to other drugs, medicaments and biological substances; Z81.8 Family history of other mental and behavioral disorders; Z82.49 Family history of ischemic heart disease and other diseases of the circulatory system; Z80.6 Family history of leukemia

== ENCOUNTER 2016-12-27 12:30 | Emergency (ER) | payer OTHER ==
[~2016-12-27] VITALS: Ht 154.9 cm; Wt 48.8 kg
[~2016-12-27 12:30] MED LIST changes: -BREX1TAB2 PO; -BREX1TAB3 PO; +EFFSR75 PO; +Nicotine TD; +QUET-115 PO; +SRQ25 PO; -VENL75CA73 PO
[2016-12-27 12:35] VITALS: TEMP 36.7; Ht 154.9 cm; Wt 48.8 kg
[2016-12-27 13:30] LABS: COMPLETE YES; HEMATOCRIT 40.2 % (37-47); IG% 0.2 %; LYMPH % 15.5 %; LYMPH ABS # 1.39 K/uL (1.2-3.4); MEAN CELL VOLUME 90.5 fL (80-100); MEAN CORPUSCULAR HEMOGLOBIN 32.4 pg (25-34); MEAN CORPUSCULAR HGB CONC 35.8 g/dl (32-36); MEAN PLATELET VOLUME 10.2 fL (7.4-10.4); MONO % 6.5 %; NEUT % 77.8 %; PLATELET COUNT 265 K/uL (130-400); RED BLOOD COUNT 4.44 M/uL (4.2-5.4); WHITE BLOOD COUNT 8.98 K/uL (4.8-10.8)
[2016-12-27 13:50] LABS: ALT/SGPT 47 U/L (12-78); BLOOD UREA NITROGEN 8 mg/dl (7-18); BUN/CREATININE RATIO 12.6 (10-20); CARBON DIOXIDE 26 mmol/L (21-32); CHLORIDE 98 mmol/L (98-107); CREATININE 0.65 mg/dl (0.60-1.20); GLUCOSE 239 mg/dl (70-99); POTASSIUM 4.5 mmol/L (3.5-5.1); SODIUM 133 mmol/L (136-145)
[2016-12-27 14:01] LABS: ALKALINE PHOSPHATASE 74 U/L (45-117); AST/SGOT 25 U/L (15-37)
[2016-12-27 14:06] LABS: URINE APPEARANCE CLEAR (CLEAR); URINE BILIRUBIN NEG (NEG); URINE COLOR YELLOW; URINE NITRITE NEG (NEG); URINE PH 6.5 (4.5-7.5); UROBILINOGEN NEG (NEG)
[2016-12-27 14:10] LABS: MANUAL MICROSCOPIC REQUIRED? YES; REVIEW REQ? NO
[2016-12-27 14:19] LABS: URINE BACTERIA NEG (NEG); URINE RBC 0-4 /hpf (0-4); URINE WBC 0 /hpf (0-5)
[2016-12-27 14:25] LABS: BENZODIAZEPINE, URINE NEG (NEG); COCAINE,URINE NEG (NEG); PHENCYCLIDINE, URINE NEG (NEG)
[2016-12-27 14:41] LABS: CALCIUM 9.5 mg/dl (8.5-10.1)
[2016-12-27] MEDS ORDERED: NovoLIN-R INSULIN PER UNIT CHARGE SQ STA ×2 (18:16→20:00)
[2016-12-27] MEDS ORDERED: METFORMIN HCL 500 MG TAB PO STA (20:00)
[2016-12-27 20:06] VITALS: BP 146/82; PULSE 82; O2SAT 97
--- NOTE | 2016-12-27 21:58 | EMERGENCY ROOM VISIT NOTE ---
History Report prepared by Claudy: Hannah Kang Under the Supervision of: Dr. Devon Blackwell M.D. First contact with patient: 12:50 Chief Complaint: MENTAL HEALTH EVALUATION Stated Complaint: ANXIETY,DEPRESSION History of Present Illness The patient is a 56 year old female who presents to the Emergency Room with complaints of persistent anxiety and depression starting about 4 days ago. She feels overwhelmed. She feels like a burden to her family but does not report any specific suicide plan. She denies any homicidal ideation. She states that she only feels good when she is asleep. She has been taking Ativan without relief. The patient was hospitalized for 3 weeks for anxiety and depression. She was discharged 5 days ago and was feeling well on discharge. She had a followup appointment at [facility] today and she was referred to the Emergency Room. She denies any specific events that exacerbated her symptoms. As per psych caseworker intake, the patient's son had committed suicide. The patient has a history of diabetes. Her blood sugar level was 219 this morning but she had not eaten anything. She reports a normal appetite and a normal fluid intake. She currently denies any pain. Pt denies LOC, headache, fevers, chills, diaphoresis , visual changes, neck pain, chest pain, breathing difficulties, nausea, vomiting, abdominal pain, back pain, melena, hematochezia, urinary symptoms, numbness, weakness, lymphadenopathy, rash, or other complaints. Source of History: patient, other (Psych caseworker intake) Onset: about 4 days ago Position: other (global) Symptom Intensity: No pain Quality: other (anxiety and depression) Timing: other (persistent) Review of Systems See HPI for pertinent positives and negatives. A total of ten systems were reviewed and were otherwise negative. Past Medical & Surgical Medical Problems: (1) Anxiety (2) Depression (3) Diabetes (4) ROMÁN (generalized anxiety disorder) (5) Nicotine dependence (6) Type 1 diabetes mellitus Family History No pertinent family history Social History Smoking Status: Current Every Day Smoker Alcohol Use: none Drug Use: none Marital Status: Housing Status: lives with family Current/Historical Medications Scheduled Atorvastatin (Lipitor), 10 MG PO QAM Insulin Aspart (Novolog), 1 DOSE SQ SLIDING SCALE Insulin Glargine (Lantus), 8 UNITS SC QAM Insulin Isophane (Human) (Novolin N Relion), 20 UNITS SQ HS Lorazepam (Ativan), 0.5 MG PO BID Metformin HCl (Metformin HCl), 500 MG PO QAM Metformin Hcl (Glucophage), 1,000 MG PO QPM Mirtazapine (Remeron), 30 MG PO HS Pantoprazole (Protonix), 40 MG PO QAM Quetiapine Fumarate (Quetiapine Fumarate), 100 MG PO HS Venlafaxine Hcl (Effexor Extended Rel), 150 MG PO QAM Vortioxetine HBr (Trintellix), 20 MG PO QAM Scheduled PRN Diphenhydramine Hcl (Benadryl Allergy), 25 MG PO HS PRN for Insomnia Quetiapine Fumarate (Quetiapine Fumarate), 25 MG PO Q6 PRN for Anxiety Allergies Coded Allergies: Prednisone (Unverified Adverse Reaction, Unknown, HYPER, 12/27/16) Physical Exam Vital Signs Date Time Temp Pulse Resp B/P (MAP) Pulse Ox O2 Delivery O2 Flow Rate FiO2 12/27/16 20:06 82 18 146/82 97 Room Air 12/27/16 18:13 74 20 144/79 96 Room Air 12/27/16 15:13 62 16 132/82 96 Room Air 12/27/16 12:35 36.7 95 18 140/86 96 Room Air Physical Exam GENERAL: Awake, alert, well-appearing, in no distress HENT: Normocephalic, atraumatic. Oropharynx unremarkable. EYES: Normal conjunctiva. Sclera non-icteric. NECK: Supple. No nuchal rigidity. FROM. No JVD. RESPIRATORY: Clear to auscultation. CARDIAC: Regular rate, normal rhythm. Extremities warm and well perfused. Pulses equal. ABDOMEN: Soft, non-distended. No tenderness to palpation. No rebound or guarding. No masses. RECTAL: Deferred. MUSCULOSKELETAL: Chest examination reveals no tenderness. The back is symmetrical on inspection without obvious abnormality. There is no CVA tenderness to palpation. No joint edema. LOWER EXTREMITIES: Calves are equal size bilaterally and non-tender. No edema. No discoloration. NEURO: Normal sensorium. No sensory or motor deficits noted. PSYCHIATRIC: Severely depressed, tearful and crying, vague thoughts of suicide but no specific plan, no homicidal ideation. SKIN: No rash or jaundice noted. Medical Decision & Procedures Laboratory Results 12/27/16 13:17 Red Blood Count 4.44, Mean Corpuscular Volume 90.5, Mean Corpuscular Hemoglobin 32.4, Mean Corpuscular Hemoglobin Concent 35.8, Mean Platelet Volume 10.2, Neutrophils (%) (Auto) 77.8, Lymphocytes (%) (Auto) 15.5, Monocytes (%) (Auto) 6.5, Eosinophils (%) (Auto) 0.0, Basophils (%) (Auto) 0.0, Neutrophils # (Auto) 6.99, Lymphocytes # (Auto) 1.39, Monocytes # (Auto) 0.58, Eosinophils # (Auto) 0.00, Basophils # (Auto) 0.00 12/27/16 13:17 Test 12/27/16 12:45 12/27/16 13:17 12/27/16 19:53 Urine Color YELLOW Urine Appearance CLEAR (CLEAR) Urine pH 6.5 (4.5-7.5) Urine Specific [place] 1.010 (1.000-1.030) Urine Protein NEG (NEG) Urine Glucose (UA) TRACE (NEG) Urine Ketones NEG (NEG) Urine Occult Blood TRACE (NEG) Urine Nitrite NEG (NEG) Urine Bilirubin NEG (NEG) Urine Urobilinogen NEG (NEG) Urine Leukocyte Esterase NEG (NEG) Urine WBC (Auto) /hpf (0-5) Urine RBC (Auto) /hpf (0-4) Urine Hyaline Casts (Auto) /lpf (0-5) Urine Epithelial Cells (Auto) /lpf (0-5) Urine Bacteria (Auto) (NEG) Urine RBC 0-4 /hpf (0-4) Urine WBC 0 /hpf (0-5) Urine Epithelial Cells 0-5 /lpf (0-5) Urine Bacteria NEG (NEG) Urine Opiates Screen NEG (NEG) Urine Methadone, Qualitative NEG (NEG) Urine Barbiturates NEG (NEG) Urine Phencyclidine (PCP) Level NEG (NEG) Ur Amphetamine/Methamphetamine NEG (NEG) MDMA (Ecstasy) Screen NEG (NEG) Urine Benzodiazepines Screen NEG (NEG) Urine Cocaine Metabolite NEG (NEG) Urine Marijuana (THC) NEG (NEG) White Blood Count 8.98 K/uL (4.8-10.8) Red Blood Count 4.44 M/uL (4.2-5.4) Hemoglobin 14.4 g/dL (12.0-16.0) Hematocrit 40.2 % (37-47) Mean Corpuscular Volume 90.5 fL (80-100) Mean Corpuscular Hemoglobin 32.4 pg (25-34) Mean Corpuscular Hemoglobin Concent 35.8 g/dl (32-36) Platelet Count 265 K/uL (130-400) Mean Platelet Volume 10.2 fL (7.4-10.4) Neutrophils (%) (Auto) 77.8 % Lymphocytes (%) (Auto) 15.5 % Monocytes (%) (Auto) 6.5 % Eosinophils (%) (Auto) 0.0 % Basophils (%) (Auto) 0.0 % Neutrophils # (Auto) 6.99 K/uL (1.4-6.5) Lymphocytes # (Auto) 1.39 K/uL (1.2-3.4) Monocytes # (Auto) 0.58 K/uL (0.11-0.59) Eosinophils # (Auto) 0.00 K/uL (0-0.5) Basophils # (Auto) 0.00 K/uL (0-0.2) RDW Standard Deviation 42.8 fL (36.4-46.3) RDW Coefficient of Variation 12.9 % (11.5-14.5) Immature Granulocyte % (Auto) 0.2 % Immature Granulocyte # (Auto) 0.02 K/uL (0.00-0.02) Anion Gap 9.0 mmol/L (3-11) Est Creatinine Clear Calc Drug Dose 73.7 ml/min Estimated GFR () 115.8 Estimated GFR (Non- 99.9 BUN/Creatinine Ratio 12.6 (10-20) Calcium Level 9.5 mg/dl (8.5-10.1) Total Bilirubin 0.3 mg/dl (0.2-1) Direct Bilirubin < 0.1 mg/dl (0-0.2) Aspartate Amino Transf (AST/SGOT) 25 U/L (15-37) Alanine Aminotransferase (ALT/SGPT) 47 U/L (12-78) Alkaline Phosphatase 74 U/L (45-117) Total Protein 7.3 gm/dl (6.4-8.2) Albumin 4.0 gm/dl (3.4-5.0) Thyroid Stimulating Hormone (TSH) 0.800 uIu/ml (0.300-4.500) Ethyl Alcohol mg/dL < 3.0 mg/dl (0-3) Bedside Glucose 432 mg/dl (70-90) Laboratory results reviewed by me Medications Administered Medications (Trade) Dose Ordered Sig/Andrew Route Start Time Stop Time Status Last Admin Dose Admin Insulin Human Regular (novoLIN-R U-100 PER UNIT) 8 units NOW STAT SQ 12/27/16 18:16 12/27/16 18:18 DC 12/27/16 18:38 8 UNITS Insulin Human Regular (novoLIN-R U-100 PER UNIT) 10 units NOW STAT SQ 12/27/16 20:00 12/27/16 20:01 DC 12/27/16 20:14 10 UNITS Metformin HCl (Glucophage Tab) 1,000 mg NOW STAT PO 12/27/16 20:00 12/27/16 20:01 DC 12/27/16 20:17 1,000 MG ED Course 1250: The patient was evaluated in room A06. A complete history and physical exam was performed. Medication Reconciliation: I attest that I have personally reviewed the patient' s current medication list Blood pressure screening: Patient was found to have an elevated blood pressure and was referred to their primary doctor for recheck and further treatment. 1630: I reevaluated the patient. She has been accepted to the [facility]. She is trying to decide if she wants to go to the [facility] or not. 181: Insulin Human Regular 8 units SQ. 1928: The patient has agreed to be transferred to the [facility]. 1999: Insulin Human Regular 10 units SQ Medical Decision Triage Nursing notes reviewed. The patient's presentation and history were concerning for depressive symptoms. Etiologies such as mood disorder, toxicologic, infection, hypoglycemia, electrolyte abnormalities, cardiac sources, intracerebral event, neurologic, as well as others were entertained. The patient was evaluated. She had significant depressive symptoms. She is referred here by her therapist for inpatient treatment. Her physical examination didn't reveal any medical pathology. The patient's CBC, urinalysis , and urine drug screen were negative. She did have mild hyperglycemia and chemistry panel. She had a repeat blood glucose and she still had increased measurements. She was given subcutaneous insulin. The patient was given dinner while waiting for the process. She had an increase in her sugar and was given additional subcutaneous insulin and her evening 1000 mg of metformin. The patient felt well. She finally agreed to inpatient treatment voluntarily at the [facility]. Accu-Chek was ordered prior to transfer however this was not completed and nursing did notify the [facility] who will check it on the patient's arrival. It appears the patient is dealing with significant mood disorder and inpatient care will be most beneficial. Impression Primary Impression: Mood disorder Scribe Attestation The scribe's documentation has been prepared under my direction and personally reviewed by me in its entirety. I confirm that the note above accurately reflects all work, treatment, procedures, and medical decision making performed by me. Departure Information Dispostion Mental Health Acute Care Referrals Hina Lazaro M.D. (PCP) Forms HOME CARE DOCUMENTATION FORM, IMPORTANT VISIT INFORMATION Patient Instructions [facility]
== END 2016-12-27 20:26 ==
LOC: C.EDB 12:33 → C.EDA 20:26
DX: F32.9 Major depressive disorder, single episode, unspecified (principal); F41.9 Anxiety disorder, unspecified; E10.9 Type 1 diabetes mellitus without complications; F17.210 Nicotine dependence, cigarettes, uncomplicated; Z79.4 Long term (current) use of insulin; Z79.899 Other long term (current) drug therapy